=== PATIENT | female | born 1940 | race Caucasian/White ===

== ENCOUNTER 2022-03-10 13:00 | Outpatient (RCR) | payer MEDICARE, SELFPAY ==
--- OUTSIDE RECORDS SUMMARY | 2022-02-10 10:33 | XMS_ITS | Continuity of Care Document ---
:1940 Author Care Team Providers Name Role Phone MD Berta Durham Primary Care Physician JAIRO Rogers Attending Physician Chief Complaint and Reason for Visit Chief Complaint Dyspnea/Respdistress Reason for Visit Diabetes [id number] Allergies, Adverse Reactions, Alerts Allergen Type Severity Reaction Last Verified Status Updated Penicillin Allergy Severe RASH January 17, Yes Active 2020 Sulfa Allergy Mild RASH January 17, Yes Active Antibiotics 2020 Social History Smoking Status Status Start Date End Date Date of Observat ion Ex-smoker (finding) January 17 4:49pm Additional Data Assigned Sex Female Problems Active Problems Medical Problem Onset Date Status Asthma Active Medications Medication Status Dose Units Route Directions Qty Days Start End Ins tructions Date Date Metformin Hcl Active 500 MG PO Three Times A Day Montelukast Active 10 MG PO Bedtime Sodium Prednisone Active 20 MG PO Daily 5 5 January 17, 2021 5:07pm Advance Directives Advance Directive Response Recorded Date/Time Has patient completed a Yes January 17, 2021 4 :49pm Health Care Directive? Insurance Providers Guarantor AnanthLouann Address [address] [place] [id number] Contact Info. Home Phone: Payer Policy Id Coverage Id Subscriber's Subscriber Id Effective E xpiration Name Date Date [facility] [id number] Louann Wadsworth [id number] Medicare Plans Encounters Encounter Location(s) Arrival/Admit Date Discharge/Depart Date Provider(s) Registered [place] February 09, 2022 Idania Rogers [facility] 6:59am A MANAGER COLLECTION Plan of Treatment Future Tests Future scheduled test information is unavailable Pending Tests Pending diagnostic test information is unavailable Future Visits Future appointment information is unavailable Referrals to Other Providers Reason for Referral Start Provider Provider Contact Provider Address Referral Date Information Luna Durham Work Phone: [facility] Berta ODOM [address] [employer] [address] Future Procedures Future procedure information is unavailable Future Medications Future medication information is unavailable Patient Instructions See Additional Instructions Asthma (DC)
[2022-02-24 13:13] VITALS: BP 143/82; RESP 18; TEMP 36.9; O2SAT 95
[2022-02-24] MEDS: OMALIZUMAB 75 MG SUBCUT (13:30)
[2022-02-24] MEDS: OMALIZUMAB 150 MG PT OWN 300 MG SUBCUT (13:30)
--- NOTE | 2022-03-03 19:37 | ONC.NURNOTE ---
Authorization: User: Yuko [email or web address] Date: 12/08/21 09:20 Type: Eligibility Determination Note... Per Arlet in UR. Pt's medicine comes from [facility]; no PA necessary per [facility].
[2022-03-10 12:58] VITALS: BP 172/85; PULSE 69; RESP 16; TEMP 36.9; O2SAT 93
[2022-03-10] MEDS: OMALIZUMAB 150 MG PT OWN 300 MG SUBCUT (13:29)
[2022-03-10] MEDS: OMALIZUMAB 75 MG SUBCUT (13:29)
== END 2022-03-19 23:59 | disposition home or self-care (01) ==
LOC: CCIC 13:00
PROVIDERS: PCP Family Medicine; Visit Provider Clinical Nurse Specialist
DX: J45.909 Unspecified asthma, uncomplicated (principal)
CPT/HCPCS: 96372; 96374

== ENCOUNTER 2022-09-15 13:30 | Outpatient (RCR) | payer MEDICARE, SELFPAY ==
[2022-03-24 12:58] VITALS: BP 161/77; PULSE 72; RESP 16; TEMP 36.6; O2SAT 96
[2022-03-24] MEDS: OMALIZUMAB 150 MG PT OWN 300 MG SUBCUT (13:27)
[2022-03-24] MEDS: OMALIZUMAB 75 MG SUBCUT (13:27)
[2022-04-07 12:55] VITALS: BP 125/83; PULSE 65; RESP 16; TEMP 37; O2SAT 96
[2022-04-07] MEDS: OMALIZUMAB 75 MG SUBCUT (13:30)
[2022-04-07] MEDS: OMALIZUMAB 150 MG PT OWN 300 MG SUBCUT (13:30)
[2022-04-21 13:20] VITALS: BP 151/90; PULSE 79; RESP 16; TEMP 36.9; O2SAT 95
[2022-04-21] MEDS: OMALIZUMAB 150 MG PT OWN 300 MG SUBCUT (13:47)
[2022-04-21] MEDS: OMALIZUMAB 75 MG SUBCUT (13:48)
[2022-05-05 13:45] VITALS: BP 145/85; PULSE 78; RESP 18; TEMP 36.9; O2SAT 98
[2022-05-05] MEDS: OMALIZUMAB 75 MG SUBCUT (14:01)
[2022-05-05] MEDS: OMALIZUMAB 150 MG PT OWN 300 MG SUBCUT (14:01)
--- NOTE | 2022-05-05 15:49 | ONC.NURNOTE ---
Pt here for xanelir. Pt very stressed related to clinic bill she received. Pt has talked to Cris the pt advocate in the recent past regarding same issue. Doula left message for pt advocate to contact pt regarding this issue.
[2022-05-19 13:43] VITALS: BP 143/89; PULSE 73; RESP 16; TEMP 36.2; O2SAT 98
[2022-05-19] MEDS: OMALIZUMAB 75 MG SUBCUT (14:22)
[2022-05-19] MEDS: OMALIZUMAB 150 MG PT OWN 300 MG SUBCUT (14:22)
[2022-06-02 12:46] VITALS: BP 142/88; PULSE 71; RESP 16; TEMP 36.3; O2SAT 100
[2022-06-02] MEDS: OMALIZUMAB 150 MG PT OWN 300 MG SUBCUT (13:15)
[2022-06-02] MEDS: OMALIZUMAB 75 MG SUBCUT (13:15)
--- NOTE | 2022-06-02 14:44 | ONC.NURNOTE ---
Pt tolerated Xolair well. Pt saw Dr. Marsh for annual visit on 05/23; requested visit note and new orders be faxed to us. Pt scheduled for next 2 doses in congruence with expiration date of current orders being 07/01/22.
[2022-06-16 12:57] VITALS: BP 155/90; PULSE 64; RESP 16; TEMP 36.8; O2SAT 99
[2022-06-16] MEDS: OMALIZUMAB 150 MG PT OWN 300 MG SUBCUT (13:21)
[2022-06-16] MEDS: OMALIZUMAB 75 MG SUBCUT (13:22)
[2022-06-30 12:50] VITALS: BP 144/85; PULSE 69; RESP 16; TEMP 36.1; O2SAT 100
[2022-06-30] MEDS: OMALIZUMAB 150 MG PT OWN 300 MG SUBCUT (13:22)
[2022-06-30] MEDS: OMALIZUMAB 75 MG SUBCUT (13:22)
--- NOTE | 2022-07-11 12:49 | ONC.NURNOTE ---
Received call from pharmacy noting the shipment of Xolair has not arrived. Upon investigation, specialty pharmacy needs updated prescription. Faxed updated orders to our pharmacy, who will then fax/coordinate with specialty pharmacy for delivery. Notified pt to call us 07/14 prior to appt to confirm Xolair is available. Pt is agreeable to this plan.
--- NOTE | 2022-07-17 15:36 | ONC.NURNOTE ---
Patient called to see if her Xolair came today. Called pharmacy and they have not received her Xolair. They went and checked the loading dock and it was not there as well. Called patient back to let her know it is not here. She is concerned that there is something wrong with the process as she had a hard time when she first got here. Pearl Technician started to investigate situation. Pharmacy had been faxing the Infusion Therapy request form which is signed by Mala Rogers but we do not have an actual prescription. Called Dr. Marsh's office at [place] to request a prescription and spoke with his nurse, Vinay who stated that Dr. Durham is the doctor who is prescribing this medication as it is against [facility]'s policy for a provider to send a prescription to another facility where they do not have privileges to prescribe. Pearl Technician called Dr. Durham's office and spoke with a nurse, Guevara, who stated that Dr. Durham is not in today but they left an Urgent task in her basket and she will be in tomorrow at 7am. Pearl Technician faxed over Dr. Marsh's most recent visit and lab work and requested that Dr. Durham fax the new prescription to the [facility] so we can then submit this to the specialty pharmacy as soon as we get it (Specialty pharmacy: Phone: , Fax: ). Patient was called and updated on this information and will get her scheduled as soon as we get the medication in. She felt good knowing that there is a solution. Pearl Technician also contacted the patient advocate to keep her informed of the situation.
--- NOTE | 2022-07-18 15:56 | ONC.NURNOTE ---
e prescription sent to [facility] which is the [facility] pharmacy for dispensing Xolair 375 mg SQ q 2 weeks 28 day supply 150 mg X 2 disp #4 75mg X 1 disp #2 signed by Mala Rogers APRN
--- NOTE | 2022-07-19 11:12 | ONC.NURNOTE ---
[facility] has contacted [facility] for Xolair 150mg and 75mg received they will be sending a 2 month supply #8 150 mg #4 75 mg
[2022-08-02 13:46] VITALS: BP 158/90; PULSE 68; RESP 16; TEMP 36.6; O2SAT 97
[2022-08-02] MEDS: OMALIZUMAB 75 MG SUBCUT (14:14)
[2022-08-02] MEDS: OMALIZUMAB 150 MG PT OWN 300 MG SUBCUT (14:16)
[2022-08-16 13:45] VITALS: BP 160/77; PULSE 80; RESP 16; TEMP 36.9; O2SAT 96
[2022-08-16] MEDS: OMALIZUMAB 75 MG SUBCUT (13:49)
[2022-08-16] MEDS: OMALIZUMAB 150 MG PT OWN 300 MG SUBCUT (13:49)
[2022-09-01 13:30] VITALS: BP 158/90; PULSE 76; RESP 16; TEMP 36.8; O2SAT 97
[2022-09-01] MEDS: OMALIZUMAB 150 MG PT OWN 300 MG SUBCUT (14:10)
[2022-09-01] MEDS: OMALIZUMAB 75 MG SUBCUT (14:11)
[2022-09-15 13:25] VITALS: BP 147/86; PULSE 71; RESP 16; TEMP 36.3; O2SAT 96
[2022-09-15] MEDS: OMALIZUMAB 75 MG SUBCUT (13:40)
[2022-09-15] MEDS: OMALIZUMAB 150 MG PT OWN 300 MG SUBCUT (13:40)
== END 2022-09-20 23:59 | disposition home or self-care (01) ==
LOC: CCIC 13:30
PROVIDERS: PCP Family Medicine; Referring Provider Family Medicine; Visit Provider Clinical Nurse Specialist
DX: J45.909 Unspecified asthma, uncomplicated (principal)
CPT/HCPCS: 96372; 96401

== ENCOUNTER 2023-03-02 14:36 | Emergency (ER) | payer MEDICARE, SELFPAY ==
[2023-03-02 14:40] VITALS: BP 164/84; PULSE 74; RESP 18; TEMP 37.1; O2SAT 95; BMI 32.1
--- NOTE | 2023-03-02 15:09 | ED_ITS ---
HPI - SOB/Dyspnea General Chief Complaint: Shortness of Breath/Dyspnea Stated Complaint: Asthma exacerbated shortness of breath Time Seen by Provider: 03/02/23 14:37 Source: patient Mode of arrival: ambulatory History of Present Illness HPI Narrative: 82-year-old female with a notable history of asthma that presents to emergency department for worsening shortness of breath over the past couple of days. She has a known history of eosinophilic asthma. Has never responded well to montelukast or inhaled steroids. She is on Xolair injections. She sees an asthma specialist at [place]. She reports that she has had 4 or 5 prednisone burst s within the last 6 months. She completed her last per 17 days ago. She no longer has standing prednisone orders she found out and requests a refill of her prednisone today in the ED. She has inhaled albuterol at home. She does respond to this but only temporarily. Is using every 3-4 hours for the past 24 hours. She states that she has never had any intubated for her asthma. She is not noticing any fevers or productive cough. She has not contacted her asthma specialist recently. She no longer has access to nebulized albuterol since her insurance no longer covers this, except for COPD patients. She reports that she does typically improve on the nebulized medications as well. No injury or trauma, no chest pain. No swelling her legs or cardiac symptoms. No other concerns today. Requests a prednisone refill. Symptoms were gradual onset. Past medical history is notable for type 2 diabetes, reports that this is well controlled. Multiple drug allergies reviewed. Medications reviewed, reported as accurate per patient. ROS is notable for the respiratory symptoms as above only, otherwise denies times 12 systems. Related Data Home Medications Medication Instructions Recorded Confirmed metformin 500 mg tablet 500 mg PO TID 02/23/22 03/02/23 albuterol sulfate 90 mcg/actuation 2 puff inhalation Q4H PRN 02/24/22 03/02/23 aerosol inhaler magnesium oxide 400 mg PO DAILY 01/05/23 03/02/23 prednisone 20 mg tablet 40 mg PO DAILY PRN ASTHMA FLARE 02/08/23 03/02/23 Previous Rx's Medication Instructions Recorded omalizumab 150 mg/mL subcutaneous 300 mg (2 mL) subcut Q2W asthma #8 07/18/22 syringe (Xolair) mL omalizumab 75 mg/0.5 mL 75 mg (0.5 mL) subcut Q2W asthma 07/18/22 subcutaneous syringe (Xolair) #2 syringes albuterol sulfate 90 mcg/actuation 2 puff inhalation Q4-6H PRN 03/02/23 aerosol inhaler (Ventolin HFA) shortness of breath or wheezing #8.5 grams inhalat.spacing dev,large mask #1 ea 03/02/23 (BreatheRite Spacer and Mask, Adult) prednisone 20 mg tablet 20 - 40 mg (1 - 2 x 20 mg) PO 03/02/23 DAILY #15 tabs Allergies Allergy/AdvReac Type Severity Reaction Status Date / Time Penicillins Allergy Severe Verified 03/02/23 14:50 Sulfa (Sulfonamide Allergy Mild Verified 03/02/23 14:50 Antibiotics) terbinafine Allergy Mild Depression Verified 03/02/23 14:50 fluticasone [From Flonase] AdvReac Mild Nose Bleed Verified 03/02/23 14:50 PFSH PFSH Surgical History History of hysterectomy with unilateral oophorectomy ?Z90.710 - Acquired absence of both cervix and uterus (ICD-10) ?Z90.721 - Acquired absence of ovaries, unilateral (ICD-10) History of nephrolithiasis ?Z87.442 - Personal history of urinary calculi (ICD-10) History of cholecystectomy ?Z90.49 - Acquired absence of other specified parts of digestive tract (ICD- 10) History of cataract surgery ?Z98.49 - Cataract extraction status, unspecified eye (ICD-10) Exam Const: Vital Signs, click to edit/add: Vital Signs - 24 hr 03/02/23 14:40 Temperature 98.8 F Pulse Rate [Right Pulse Oximeter] 74 Respiratory Rate 18 Blood Pressure [Ri ght Upper Arm] 164/84 H Pulse Oximetry 95 Oxygen Delivery Me thod Room Air Documenting provider has reviewed patient's vital signs: yes Common normals: no apparent distress General appearance: cooperative, comfortable and well kempt HENMT: Common normals: normocephalic Head and scalp: normocephalic Face and sinus: normal facial exam Mouth: oral and palatal mucosa normal Throat: posterior oropharynx normal Eye: Common normals: conjunctivae normal General eye: normal appearance of both eyes Conjunctiva: conjunctiva(e) normal Neck & C-Spine: Common normals: no lymphadenopathy Resp: Common normals: normal respiratory effort and no use of accessory muscles Other: Moderate expiratory wheezing only. Mild prolongation of expiration compared to inspiration. No crackles. Normal respiratory effort. Cardio: Common normals: regular rate, regular rhythm, S1 normal heart sound, S2 normal heart sound and no murmurs Rate: regular rate Rhythm: regular rhythm Heart sounds: S1 normal and S2 normal Extremity: Common normals: normal capillary refill and no pedal edema Psych: Appearance: well kempt Attitude: engaged Insight: insight good Judgement: judgment good Skin: Common normals: no rashes or lesions noted General skin exam: no rashes or lesions noted Course Course Hospital Course: Differential diagnosis including asthma, COPD, pneumonia, viral illness, pulmonary embolism, heart failure, bronchitis, among others. No signs of any structural cardiac disease, vital signs are reassuring. No hypoxia. Exam is consistent with wheezing in the setting of known asthmatic. Recommended a DuoNeb and starting prednisone. Do not see any indications for chest x-ray or additional blood work with her well documented history. Discussed home management with a prednisone burst. She lets me know that she may not have adequate inhaled albuterol, I will send prescriptions for this as well. She will follow-up with her asthma specialist if she is not noting marked improvement within 48 hours. Alarm symptoms reviewed that would warrant ED presentation. Verbalizes understanding and agreement Vital Signs Vital signs: Initial Vital Signs Temperature 98.8 F 03/02/23 14:40 Temperature Source Temporal Artery Scan 03/02/23 14:40 Pulse Rate 74 03/02/23 14:40 Respiratory Rate 18 03/02/23 14:40 Blood Pressure 164/84 H 03/02/23 14:40 Blood Pressure Mean 110 H 03/02/23 14:40 Blood Pressure Position Sitting 03/02/23 14:40 Pulse Oximetry 95 03/02/23 14:40 Oxygen Delivery Method Room Air 03/02/23 14:40 Vital Signs Temperature 98.8 F 03/02/23 14:40 Pulse Rate 74 03/02/23 14:40 Respiratory Rate 18 03/02/23 14:40 Blood Pressure 164/84 H 03/02/23 14:40 Pulse Oximetry 95 03/02/23 14:40 Oxygen Delivery Method Room Air 03/02/23 14:40 Temperature 98.8 F 03/02/23 14:40 Pulse Rate 74 03/02/23 14:40 Respiratory Rate 18 03/02/23 14:40 Blood Pressure 164/84 H 03/02/23 14:40 Pulse Oximetry 95 03/02/23 14:40 Oxygen Delivery Method Room Air 03/02/23 14:40 Discharge Plan Discharge Clinical Impression: Asthma with acute exacerbation Patient Disposition: Home, Self-Care Condition: Improved Instructions: Asthma (DC) Additional Instructions: I agree with your assessment that you need another round of prednisone. I have sent a prescription [facility] to [facility]. You have already had today's dose, but take your next dose tomorrow morning. I have sent additional refills of your albuterol and a spacer which I recommend you use with your inhaler. You should notice marked improvement within 48 hours. If your breathing become severely labored, you start running high fevers or there is severe weakness or other worrisome findings, please come back to the emergency department. If her symptoms are stable but failing to improve within 48 hours, please contact your asthma specialist. Activity Level: Activity as Tolerated Prescriptions: New prednisone 20 mg tablet 20 - 40 mg PO DAILY Qty: 15 0RF Rx Instructions: 2 tablets by mouth daily for 5 days, then reduce to 1 tablet by mouth daily for the remaining 5 days albuterol sulfate [Ventolin HFA] 90 mcg/actuation HFA aerosol inhaler 2 puff inhalation Q4-6H PRN (Reason: shortness of breath or wheezing) Qty: 8.5 1RF (DME) BreatheRite Spacer-Mask,Adult Spacer See Rx Instructions .Route Qty: 1 1RF Rx Instructions: As directed No Action metformin 500 mg tablet 500 mg PO TID Patient Comments: TAKE ONE TABLET BY MOUTH TWICE A DAY WITH MEALS albuterol sulfate 90 mcg/actuation HFA aerosol inhaler 2 puff INHALATION Q4H PRN Patient Comments: Inhale 1-2 Puffs by mouth every 4 hours if needed for Shortness of Breath 1st choice. prednisone 20 mg tablet 40 mg PO DAILY PRN (Reason: ASTHMA FLARE) Patient Comments: TAKE 2 TABLETS DAILY FOR 5 DAYS , THEN 1 TABLETS DAILY FOR 5 DAYS - FOR TREATMENT OF EOSINOPHILIC ASTHMA EXACE magnesium oxide 400 mg magnesium capsule 400 mg PO DAILY Xolair 150 mg/mL syringe 300 mg subcut Q2W Qty: 8 11RF Rx Instructions: Administer 2 - 150mg syringes and 1 - 75 mg syringe. Total dose of 375mg q 14 days. Xolair 75 mg/0.5 mL syringe 75 mg subcut Q2W Qty: 2 11RF Rx Instructions: 1 - 75mg syringe q 2 weeks subQ. Given with 2 - 150mg syringes for total dose of 375mg of omalizumab q 2 weeks (14 days) Follow Up/Referrals: Adrianna Fermin MD [Primary Care Provider] - Stand Alone [facility]
[2023-03-02] MEDS: predniSONE 10 MG TABLET 50 MG PO (15:23)
[2023-03-02] MEDS: IPRAT-ALBUT 0.5-2.5 MG/3 ML NEB 1 NEB IH (15:23)
== END 2023-03-02 15:39 | disposition home or self-care (01) ==
PROVIDERS: Emergency Provider Family Medicine; PCP Internal Medicine
DX: J45.901 Unspecified asthma with (acute) exacerbation (principal)
CPT/HCPCS: 94640; 99283; 99284; J7512

== ENCOUNTER 2023-03-16 13:30 | Outpatient (RCR) | payer MEDICARE, SELFPAY ==
[2022-09-29 13:45] VITALS: BP 171/91; PULSE 76; RESP 16; TEMP 36.5; O2SAT 94
[2022-09-29] MEDS: OMALIZUMAB 75 MG SUBCUT (14:14)
[2022-09-29] MEDS: OMALIZUMAB 150 MG PT OWN 300 MG SUBCUT (14:14)
[2022-10-13 13:33] VITALS: BP 127/80; PULSE 79; RESP 18; TEMP 36.4; O2SAT 96
[2022-10-13] MEDS: OMALIZUMAB 150 MG PT OWN 300 MG SUBCUT (13:45)
[2022-10-13] MEDS: OMALIZUMAB 75 MG SUBCUT (13:45)
--- NOTE | 2022-10-13 15:49 | ONC.NURNOTE ---
Pt here for Xolair injections; she is still on oral Dex for a recent asthma flare and c/o symptoms of thrush in her mouth. She reports feeling like her tongue is coated and her teeth feel coated every few hours; she is drinking additional water to manage. She has had thrush previously when on steroid tapers and has a message out to her PCP for nystatin [id number], which has been effective in the past. Script Reader examined tongue; yellow, patchy/coated. She describes similar symptoms in her throat as well. Gave pt handout for mucositis, highlighting especially salt water rinses at least QID. Also gave pt contact info for [facility] and [facility] hours as it is Sunday; pt to see a provider this weekend.
[2022-10-27 13:27] VITALS: BP 155/83; PULSE 76; RESP 16; TEMP 36.9; O2SAT 93
[2022-10-27] MEDS: OMALIZUMAB 75 MG SUBCUT (13:44)
[2022-10-27] MEDS: OMALIZUMAB 150 MG PT OWN 300 MG SUBCUT (13:45)
[2022-11-10 13:36] VITALS: BP 142/69; PULSE 76; RESP 16; TEMP 36.2; O2SAT 96
[2022-11-10] MEDS: OMALIZUMAB 150 MG PT OWN 300 MG SUBCUT (13:55)
[2022-11-10] MEDS: OMALIZUMAB 75 MG SUBCUT (13:56)
--- NOTE | 2022-11-10 15:34 | ONC.NURNOTE ---
Pt here for Xolair today; is 1 week post end of steroid taper. She reports she recently had a Zpack and Nystatin for Thrush and is out of both. Z-pack was prescribed with a refill and pt feels the 5 ml is inadequate amount to reach her entire mouth and throat. Reviewed that sometimes 10 ml at a time is prescribed and encouraged pt to reach out to pharmacy/PCP for refill. Encouraged salt water rinses QID. Pt reports she is consider taking MG OTC for occasional calf and thigh cramps that have recently increased. Recommended pt ask PCP about appropriate dose range. Pt agreeable to this plan; appts made for next injections.
[2022-11-24 13:31] VITALS: BP 154/89; PULSE 80; RESP 16; TEMP 36.3; O2SAT 98
[2022-11-24] MEDS: OMALIZUMAB 75 MG SUBCUT (13:55)
[2022-11-24] MEDS: OMALIZUMAB 150 MG PT OWN 300 MG SUBCUT (13:56)
--- NOTE | 2022-12-05 13:07 | URNOTE ---
Request received for authorization for Xolair ([id number]). Prior authorization is not required as medication is sent by [facility] through [facility] until 04/2024.
[2022-12-08 13:30] VITALS: BP 160/81; PULSE 84; RESP 18; TEMP 36.3; O2SAT 97
[2022-12-08] MEDS: OMALIZUMAB 150 MG PT OWN 300 MG SUBCUT (14:28)
[2022-12-08] MEDS: OMALIZUMAB 75 MG SUBCUT (14:28)
[2022-12-22 13:24] VITALS: BP 167/76; PULSE 78; RESP 16; TEMP 37; O2SAT 94
[2022-12-22] MEDS: OMALIZUMAB 150 MG PT OWN 300 MG SUBCUT (13:57)
[2022-12-22] MEDS: OMALIZUMAB 75 MG SUBCUT (13:57)
[2023-01-05 13:32] VITALS: BP 163/84; PULSE 72; RESP 16; TEMP 36.2; O2SAT 99
[2023-01-05] MEDS: OMALIZUMAB 75 MG SUBCUT (13:57)
[2023-01-05] MEDS: OMALIZUMAB 150 MG PT OWN 300 MG SUBCUT (13:57)
[2023-01-19 13:26] VITALS: BP 158/74; PULSE 81; RESP 16; TEMP 36.3; O2SAT 95
[2023-01-19] MEDS: OMALIZUMAB 75 MG SUBCUT (13:56)
[2023-01-19] MEDS: OMALIZUMAB 150 MG PT OWN 300 MG SUBCUT (13:57)
[2023-02-02 13:15] VITALS: BP 129/73; PULSE 75; RESP 16; TEMP 36.1; O2SAT 95
[2023-02-02] MEDS: OMALIZUMAB 150 MG PT OWN 300 MG SUBCUT (13:45)
[2023-02-02] MEDS: OMALIZUMAB 75 MG SUBCUT (13:45)
[2023-02-16 13:25] VITALS: BP 153/83; PULSE 77; RESP 16; TEMP 36.1; O2SAT 94
[2023-02-16] MEDS: OMALIZUMAB 75 MG SUBCUT (13:43)
[2023-02-16] MEDS: OMALIZUMAB 150 MG PT OWN 300 MG SUBCUT (13:43)
[2023-03-02 13:15] VITALS: BP 145/72; PULSE 71; RESP 18; TEMP 36.3; O2SAT 94
[2023-03-02] MEDS: OMALIZUMAB 150 MG PT OWN 300 MG SUBCUT (13:29)
[2023-03-02] MEDS: OMALIZUMAB 75 MG SUBCUT (13:29)
[2023-03-16 13:10] VITALS: BP 148/78; PULSE 68; RESP 16; TEMP 36.6; O2SAT 96
[2023-03-16] MEDS: OMALIZUMAB 150 MG PT OWN 300 MG SUBCUT (13:33)
[2023-03-16] MEDS: OMALIZUMAB 75 MG SUBCUT (13:33)
== END 2023-03-29 14:04 | disposition home or self-care (01) ==
LOC: CCIC 13:30
PROVIDERS: PCP Family Medicine; Referring Provider Family Medicine; Visit Provider Clinical Nurse Specialist
DX: J45.909 Unspecified asthma, uncomplicated (principal)
CPT/HCPCS: 94640; 96372; 96401; 99283; 99284; J7512

== ENCOUNTER 2023-05-04 09:47 | Outpatient (CLI) | payer MEDICARE, SELFPAY | END 2023-05-04 09:48 | disposition home or self-care (01) | LOC: NFLDREF 05-08 12:33 | PROVIDERS: PCP Internal Medicine; Referring Provider Family Medicine; Visit Provider Internal Medicine | DX: I10 Essential (primary) hypertension (principal); E11.9 Type 2 diabetes mellitus without complications; E66.9 Obesity, unspecified | CPT/HCPCS: 80053; 82043; 82570 ==

== ENCOUNTER 2023-09-21 13:30 | Outpatient (RCR) | payer MEDICARE, SELFPAY ==
[2023-03-30 13:40] VITALS: BP 154/89; PULSE 66; RESP 18; TEMP 36.8; O2SAT 95
[2023-03-30] MEDS: OMALIZUMAB 75 MG SUBCUT (14:22)
[2023-03-30] MEDS: OMALIZUMAB 150 MG PT OWN 300 MG SUBCUT (14:22)
[2023-04-13 13:23] VITALS: BP 165/90; PULSE 75; RESP 16; TEMP 36.6; O2SAT 98
[2023-04-13] MEDS: OMALIZUMAB 75 MG SUBCUT (13:46)
[2023-04-13] MEDS: OMALIZUMAB 150 MG PT OWN 300 MG SUBCUT (13:46)
[2023-04-27 13:18] VITALS: BP 150/73; PULSE 81; RESP 16; TEMP 36.6; O2SAT 93
[2023-04-27] MEDS: OMALIZUMAB 150 MG PT OWN 300 MG SUBCUT (14:00)
[2023-04-27] MEDS: OMALIZUMAB 75 MG SUBCUT (14:01)
--- NOTE | 2023-04-27 16:25 | ONC.NURNOTE ---
states had a tooth extracted 3 days ago. denies abscess or infection. denies pain. did take tylenol day of. now on preventative clindamycin. Also on po prednisone [id number] and 20x2 days for asthma exh. states sats 89 at home a few days ago.
[2023-05-11 13:30] VITALS: BP 146/75; PULSE 71; RESP 16; TEMP 36.1; O2SAT 95
[2023-05-11] MEDS: OMALIZUMAB 75 MG SUBCUT (13:41)
[2023-05-11] MEDS: OMALIZUMAB 150 MG PT OWN 300 MG SUBCUT (13:41)
[2023-05-25 13:27] VITALS: BP 132/77; PULSE 66; RESP 16; TEMP 36.2; O2SAT 97
[2023-05-25] MEDS: OMALIZUMAB 75 MG SUBCUT (13:57)
[2023-05-25] MEDS: OMALIZUMAB 150 MG PT OWN 300 MG SUBCUT (13:57)
[2023-06-08 13:56] VITALS: BP 142/72; PULSE 74; RESP 16; TEMP 36.5; O2SAT 95
[2023-06-08] MEDS: OMALIZUMAB 150 MG PT OWN 300 MG SUBCUT (14:15)
[2023-06-08] MEDS: OMALIZUMAB 75 MG SUBCUT (14:15)
[2023-06-22 13:15] VITALS: BP 122/76; PULSE 62; RESP 16; TEMP 36.6; O2SAT 97
[2023-06-22] MEDS: OMALIZUMAB 75 MG SUBCUT (14:08)
[2023-06-22] MEDS: OMALIZUMAB 150 MG PT OWN 300 MG SUBCUT (14:08)
[2023-07-06 13:32] VITALS: BP 144/75; PULSE 85; RESP 16; TEMP 36.6; O2SAT 96
[2023-07-06] MEDS: OMALIZUMAB 150 MG PT OWN 300 MG SUBCUT (13:58)
[2023-07-06] MEDS: OMALIZUMAB 75 MG SUBCUT (13:58)
[2023-07-20 13:22] VITALS: BP 145/84; PULSE 72; RESP 16; TEMP 35.9; O2SAT 93
[2023-07-20] MEDS: OMALIZUMAB 150 MG PT OWN 300 MG SUBCUT (14:29)
[2023-07-20] MEDS: OMALIZUMAB 75 MG SUBCUT (14:29)
[2023-08-03 13:30] VITALS: BP 156/83; PULSE 68; RESP 16; TEMP 36.8; O2SAT 97
[2023-08-03] MEDS: OMALIZUMAB 150 MG PT OWN 300 MG SUBCUT (13:45)
[2023-08-03] MEDS: OMALIZUMAB 75 MG SUBCUT (13:45)
[2023-08-17 13:30] VITALS: BP 136/77; PULSE 69; RESP 16; TEMP 35.7; O2SAT 96
[2023-08-17] MEDS: OMALIZUMAB 75 MG SUBCUT (13:42)
[2023-08-17] MEDS: OMALIZUMAB 150 MG PT OWN 300 MG SUBCUT (13:42)
[2023-08-30 14:15] VITALS: BP 130/78; PULSE 77; RESP 15; TEMP 36.6; O2SAT 95
[2023-08-30] MEDS: OMALIZUMAB 150 MG PT OWN 300 MG SUBCUT (14:35)
[2023-08-30] MEDS: OMALIZUMAB 75 MG SUBCUT (14:35)
--- NOTE | 2023-09-14 16:01 | ONC.NURNOTE ---
Pt did not show up for appt today, left message for pt to call back and reschedule.
[2023-09-21 13:18] VITALS: BP 154/76; PULSE 69; RESP 16; TEMP 36.3; O2SAT 93
[2023-09-21] MEDS: OMALIZUMAB 75 MG SUBCUT (14:11)
[2023-09-21] MEDS: OMALIZUMAB 150 MG PT OWN 300 MG SUBCUT (14:12)
== END 2023-09-26 23:59 | disposition home or self-care (01) ==
LOC: CCIC 13:30
PROVIDERS: PCP Internal Medicine; Referring Provider Family Medicine; Visit Provider Clinical Nurse Specialist
DX: J82.83 Eosinophilic asthma (principal)
CPT/HCPCS: 96372

== ENCOUNTER 2024-01-31 07:51 | Outpatient (CLI) | payer MEDICARE, SELFPAY ==
--- OUTSIDE RECORDS SUMMARY | 2024-02-03 20:21 | XMS_ITS | Clinical Summary ---
Author Organization [facility] Address [place], [place] [address] Care Team Providers Care Bpm Solution Architect Name Role Phone Luna Durham MD Primary Care Provide r Allergies Active Allergy Reactions Criticality Noted Date Comments Horse Dander Other - Describe In Comment Field 05/18/2022 Positive allergy test House Dust Mite Other - Describe In Comment Field 05/18/2022 Positive allergy test Mold Other - Describe In Comment Field 05/18/2022 Positive allergy test Penicillins Anaphylaxis High 07/01/2020 Sulfa (Sulfonamide Antibiotics) Hives,Rash Medium 07/01/2020 Medications Medication Sig Dispensed Refills Start Date End Date Status blood-glucose meterIndications:Ty pe 2 diabetes mellitus without complication, without long-term current use of insulin (HC) Inject subcutaneous. Dispense meter, test strips, lancets covered by pt ins. E11.65 NIDDM type II, uncontrolled - Test 2 time/day 1 Device 07/22/2020 Active EPINEPHrine (EPIPEN) 0.3 mg/0.3 mL injection PLEASE SEE ATTACHED FOR DETAILED DIRECTIONS 12/31/2020 Active blood sugar diagnostic (True Metrix Glucose Test Strip) stripIndications:Ty pe 2 diabetes mellitus without complication, without long-term current use of insulin (HC) As directed 2 times daily. Dispense item covered by pt ins. E11.9 NIDDM type II - Test 1 time/day 200 Each 3 12/30/2021 Active azithromycin (Zithromax Z-[place]) 250 mg tabletIndications:A cute frontal sinusitis, recurrence not specified Take 500 mg today and then 250 mg days 2-5 6 Tablet 1 10/19/2022 Active albuterol HFA (PRO-AIR; VENTOLIN; PROVENTIL) 90 mcg/actuation inhalerIndications: Moderate persistent asthma with exacerbation Inhale 1-2 Puffs by mouth every 4 hours if needed for Shortness of Breath 1st choice. 18 g 11 11/28/2022 Active metFORMIN (GLUCOPHAGE) 500 mg tabletIndications:T ype 2 diabetes mellitus without complication, without long-term current use of insulin (HC) Take 1 Tablet (500 mg) by mouth three times daily with meals. 270 Tablet 3 11/28/2022 Active nystatin (MYCOSTATIN) 100,000 unit/mL suspensionIndicatio ns:Oral thrush Swish and swallow 5 mL (500,000 units) by mouth four times daily. 400 mL 45 12/25/2022 Active amLODIPine (NORVASC) 5 mg tabletIndications:H TN (hypertension) Take 1 Tablet (5 mg) by mouth once daily. 90 Tablet 3 12/25/2022 Active predniSONE (DELTASONE) 10 mg tabletIndications:M oderate persistent asthma with exacerbation TAKE 4 TABLETS DAILY WITH FOOD FOR 5 DAYS, THEN 2 TABLETS DAILY FOR 5 DAYS, THEN 1 TABLET DAILY FOR 5 DAYS AND THEN STOP 35 Tablet 03/11/2023 Active omalizumab (XOLAIR) 75 mg/0.5 mL subcutaneous syringeIndications: Pulmonary eosinophilia (HC) Inject 375 mg subcutaneous every 2 weeks 28 day supply as 2 at 150 mgs along with 75 mgs to equal 375mgs 0.5 mL 11 06/21/2023 Active omalizumab (XOLAIR) 150 mg/mL subcutaneous syringeIndications: Pulmonary eosinophilia (HC) Inject 375 mg subcutaneous every 2 weeks 28 day supply 2 at 150 mgs along with 75 mgs to equal 375mgs 2 mL 06/21/2023 Active Hospital, Clinic, or Other Facility Administered Medication Ordered Dose Route Frequency Start Date End Date Status omalizumab 150 mg injection (XOLAIR)Indications:Moderat e persistent asthma with (acute) exacerbation,Eosinophilic asthma 150 mg SubQ Q 2 WEEKS 07/02/2020 Active omalizumab 225 mg injection (XOLAIR)Indications:Moderat e persistent asthma with (acute) exacerbation,Eosinophilic asthma 225 mg SubQ Q 2 WEEKS 07/19/2022 07/15/2036 Active Active Problems Problem Noted Date Diagnosed Date Pulmonary eosinophilia 11/03/2021 Eosinophilic asthma 07/01/2020 Moderate persistent asthma with (acute) exacerba tion 07/01/2020 Type 2 diabetes mellitus wit hout complication, without long-term current use of insulin 07/01/2020 Thyroid nodule 07/01/2020 Immunizations Name Administration Dates Next Due COVID-19 vaccine (Moderna 10 0mcg/0.5mL) PF, MDV 10/13/2020,09/15/2020 Influenza Virus, Unspecified 06/08/2015,06/10/20 14,05/14/2013 Influenza, High-dose Inactivated 05/20/2019 Influenza, High-dose Quadriv alent Inactivated 05/25/2022,05/31/2021,05/10/2020 Influenza, IIV3 (Age 6-35 mos) 05/10/2011 Influenza, IIV3 (Age >=3 years) 05/14/2012 Influenza, IIV4 06/11/2018,06/07/2017,05/12/2016 Influenza, Inactivated IIV3 (Age 65+ Years) Preserv Free 05/14/2012 Pneumococcal Conj 20-valent (Prevnar 20) 023 Pneumococcal Poly,23-Valent (Pneumovax) 07/18/20 12,07/23/2006 Td (Age >=7 Years) 07/18/2012,02/17/2005 Social History Tobacco Use Types Packs/Day Years Used Date Smoking Tobacco: Never Smokeless Tobacco: Never Tobacco Cessation:Counseling Given: Yes Alcohol Use Standard Drinks/Week Comments Not Currently 0 (1 standard drink = 0.6 oz pur e alcohol) PHQ-2 Answer Date Recorded PHQ-2 TOTAL SCORE 0 12/25/2022 Social Connections Answer Date Recorded Frequency of Communication with Friends and Fami ly Not on file 12/31/2023 Financial Resource Strain Answer Date R ecorded Difficulty of Paying Living Expenses Not on file 12/25/2022 Difficulty of Paying Living Expenses 3 12/25/2022 Food Insecurity Answer Date Recorded Worried About Running Out of Food in the Last Ye ar 1 12/30/2021 Transportation Needs Answer Date Record ed Lack of Transportation (Medical) 1 12/30/2021 Housing Stability Answer Date Recorded Unable to Pay for Housing in the Last Year 2 12/25/2022 Sex and Gender Information Value Date Recorded Sex Assigned at Not on file Gender Identity Not on file Sexual Orientation Not on file Obstetrics History Last Filed Vital Signs Vital Sign Reading Time Taken Comments Blood Pressure 174/110 12/25/2022 11:08 AM CDT Patient is not taking amlodipine as Rx. Pulse 77 12/25/2022 11:08 AM CDT Temperature 36.6 ??C (97.8 ??F) 12/25/2022 1 1:08 AM CDT Respiratory Rate 18 12/25/2022 11:0 8 AM CDT Oxygen Saturation 97% 12/25/2022 11: 08 AM CDT Inhaled Oxygen Concentration - - Weight 85.3 kg (188 lb) 11/28/2022 11:1 8 AM CDT Height 162.6 cm (5' 4) 12/30/2021 11:1 1 AM CDT Body Mass Index 32.27 12/30/2021 11:11 AM CDT Plan of Treatment Health Maintenance Due Date Last Done Comments Tdap 1951 Zoster (shingles) series for age 50+ (1 of 2) 1992 DEXA/DXA scan for age 65+ 12/22/2007 Tetanus booster 07/18/2022 07/18/2012, 02/17/2005 BMI (ht and wt on same day) for age 18+ 12/30/2022 12/30/2021, 05/10/2021, 03/11/2021, Additional history exists Medicare Wellness for age 65+ 12/31/2022 12/30/2021, 07/22/2020 COVID-19 vaccine series ( season) 2023 05/12/2022, 10/13/2020, 09/15/2020 Depression screening for age 12+ 12/27/2023 12/26/2022, 12/25/2022, 12/25/2022, Additional history exists Influenza for age 65+ 04/20/2024 05/25/2022 , 05/31/2021, 05/10/2020, Additional history exists Pneumococcal series for age 65+ Completed 11/28/2022, 07/18/2012, 07/23/2006 Care Teams Bpm Solution Architect Relationship Specialty Start Date End Date Luna Durham MD [address] [place] [address] PCP - General Family Practice 07/19/20
--- OUTSIDE RECORDS SUMMARY | 2024-02-03 20:21 | XMS_ITS | Referral Summary ---
Author Organization [facility] Address [address] [place] [address] Care Team Providers Care Margarine Maker Name Role Phone Trenton Saavedra P.A.-C., P.A. Primary Care Pr ovider Source Comments Patient records contain information from all sites at [facility]. For routine questions regarding patient records, call [phone] during business hours, M-F 8:00 AM - 5:00 PM Central Time. Record requests for emergency care only can be directed to [phone] at any time.[facility] Allergies Active Allergy Reactions Criticality Noted Date Comments Fluticasone Other (see comments) Low 03/02/2023 Horse Dander Other (see comments) 05/18/2022 Positive allergy test House Dust Mite Other (see comments) 05/18/2022 Positive allergy test Mold Other (see comments) 05/18/2022 Positive allergy test Penicillins Anaphylaxis High 07/01/2020 Sulfa (Sulfonamide Antibiotics) Hives (Reselect Reaction),Rash Medium 07/01/2020 Terbinafine Other (see comments) Low 03/02/2023 Medications Medication Sig Dispensed Refills Start Date End Date Status albuterol 90 mcg/actuation inhaler Inhale 1-2 puffs. 03/10/2021 Active blood sugar diagnostic (True Metrix Glucose Test Strip) strips 2 (two) times a day. 09/09/2020 Active blood-glucose meter kit Inject under the skin. 07/22/2020 Active EPINEPHrine 0.3 mg/0.3 mL injection syringe See Admin Instructions. 12/31/2020 Active omalizumab (XOLAIR) 125 mg/mL injection Inject 375 mg under the skin every 14 (fourteen) days. 07/02/2020 Active metFORMIN XR (GLUCOPHAGE-XR) 500 mg 24 hr tablet Take 4 tablets (2,000 mg total) by mouth daily with breakfast. 360 tablet 3 04/20/2021 Active predniSONE (DELTASONE) 10 mg tabletIndications: Eosinophilic Asthma (HCC) 4T/AM x 7d; then taper off by 1/2T/d 42 tablet 1 08/03/2021 Active Additional Information Patient taking differently: 10 mg, 4T/AM x 7d; then taper off by 1/2T/d, Reported on 05/31/2023 fluticasone-umecli dinium-vilanterol (Trelegy Ellipta) 100-62.5-25 mcg/actuation inhaler Inhale 1 puff once daily. 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 Diabetes Mellitus Type 2 Without Complication Resolved Problems Problem Noted Date Diagnosed Date Resolved Date Asthma Moderate Persistent W ith Acute Exacerbation 07/01/2020 04/20/2021 Immunizations Name Administration Dates Next Due Influenza (IM) Preservative Free 05/10/2011 Influenza TIV (IM) 05/14/2012 Influenza high dose QV(65 ye ars or older) (PF) 05/10/2020 Influenza, Seasonal, Injectable 05/14/2012 Influenza, Unspecified 06/08/2015,06/10/2014, PPSV23 07/18/2012,07/23/2006 Td (Adult), adsorbed 07/18/2012,02/17/2005 influenza high dose (65 year s or older) (PF) 05/20/2019 influenza vaccine quad (FLUZ ONE/FLUARIX) (6 months and older)(PF) 06/11/2018,06/07/2017,05/12/2016 Social History Tobacco Use Types Packs/Day Years Used Date Smoking Tobacco: Former Cigarettes Smokeless Tobacco: Never Tobacco Cessation:Counseling Given: Not Answered Alcohol Use Standard Drinks/Week Comments Never 0 (1 standard drink = 0.6 oz pur e alcohol) Humiliation, Afraid, Rape, and Kick questionnair e Answer Date Recorded Within the last year, have y ou been afraid of your partner or ex-partner? No 05/18/2022 Within the last year, have y ou been humiliated or emotionally abused in other ways by your partner or ex-partner? No Within the last year, have y ou been kicked, hit, slapped, or otherwise physically hurt by your partner or ex-partner? No 05/18/2022 Within the last year, have y ou been raped or forced to have any kind of sexual activity by your partner or ex-partner? No 05/18/2022 Social Connection and Isolat ion Panel [NHANES] Answer Date Recorded In a typical week, how many times do you talk on the phone with family, friends, or neighbors? More than three times a week 05/18/2022 How often do you get togethe r with friends or relatives? Three times a week 05/18/2022 How often do you attend chur or zoroastrian services? More than 4 times per year 05/18/2022 Do you belong to any clubs o r organizations such as shinto groups, unions, fraternal or athletic groups, or school groups? Yes 05/18/2022 How often do you attend meet ings of the clubs or organizations you belong to? More than 4 times per year 05/18/2022 Are you , , di vorced, , never , or living with a partner? 05/18/2022 AUDIT-C Answer Date Recorded Q1: How often do you have a drink containing alc ohol? Never 05/18/2022 Average Number of Drinks Not on file 022 Frequency of Binge Drinking Not on file 04/21 Overall Financial Resource Strain (CARDIA) Answe r Date Recorded How hard is it for you to pa y for the very basics like food, housing, medical care, and heating? Somewhat hard 05/18/2022 PHQ-2 Answer Date Recorded PHQ-2 Score 0 04/20/2021 [facility] - Occupational Stress Questionnaire Answer Date Recorded Do you feel stress - tense, restless, nervous, or anxious, or unable to sleep at night because your mind is troubled all the time - these days? To some extent 05/18/2022 Exercise Vital Sign Answer Date Recorde d On average, how many days pe r week do you engage in moderate to strenuous exercise (like a brisk walk)? 5 days 05/18/2022 On average, how many minutes do you engage in exercise at this level? 30 min 05/18/2022 Hunger Vital Sign Answer Date Recorded Within the past 12 months, y ou worried that your food would run out before you got the money to buy more. Never true Within the past 12 months, t he food you bought just didn't last and you didn't have money to get more. Sometimes true PRAPARE - Transportation Answer Date Re corded In the past 12 months, has l ack of transportation kept you from medical appointments or from getting medications? No 04/21 In the past 12 months, has l ack of transportation kept you from meetings, work, or from getting things needed for daily living? No 05/18/2022 Housing Stability Vital Sign Answer Ramiro e Recorded In the last 12 months, was t here a time when you were not able to pay the mortgage or rent on time? No 05/18/2022 In the last 12 months, how many places have you lived? 1 05/18/2022 In the last 12 months, was t here a time when you did not have a steady place to sleep or slept in a group home (including now)? No 05/18/2022 Nutrition Answer Date Recorded Nutrition: EVOO Fat Source No 05/18 On average, how many serving s of fruits and vegetables do you eat per day (serving size is equal to 1 cup or approximately the size of a tennis ball)? 0-1 05/18/2022 Dental Answer Date Recorded Dental: Regular Dentist Yes 05/18/20 Employment Answer Date Recorded Employment status Retired 05/18/2022 Education Answer Date Recorded What is the highest level of school you have completed or the highest degree you have received? Bachelor's degree (e.g., BA, AB, BS) 04/08/2021 Sex and Gender Information Value Date Recorded Sex Assigned at Female 09/01/2021 7:01 AM CABIN OUTFITTER Gender Identity Female 04/08/2021 12:19 PM CDT Sexual Orientation Straight 04/08/2021 12 :19 PM CDT Last Filed Vital Signs Vital Sign Reading Time Taken Comments Blood Pressure 155/90 08/03/2021 1:48 PM CABIN OUTFITTER Pulse 77 08/03/2021 1:48 PM CABIN OUTFITTER Temperature 36.8 ??C (98.2 ??F) 05/31/2023 1 0:20 AM CDT Respiratory Rate 16 05/05/2021 8:52 AM CDT Oxygen Saturation 96% 08/03/2021 1:4 8 PM CABIN OUTFITTER as low as 94 Inhaled Oxygen Concentration - - Weight 80.2 kg (176 lb 12.9 oz) 05/31/2023 10:20 AM CDT Height 161 cm (5' 3.39) 05/31/2023 10: 20 AM CDT Body Mass Index 30.94 05/31/2023 10:20 AM CDT Plan of Treatment Not on file Procedures Procedure Name Priority Date/Time Associated Diagnosis Comments EXTI BASIC METABOLIC PANEL, S/P Routine 11/21/2022 8:53 AM CDT ALBUMIN, RANDOM, U Routine 04/29/2021 9: 13 AM CDT Diabetes Mellitus Type 2 Without Complication (HCC) Nodule Thyroid Nontoxic HEMOGLOBIN A1C, B Routine 04/29/2021 9:1 3 AM CDT Diabetes Mellitus Type 2 Without Complication (HCC) Nodule Thyroid Nontoxic from Last 3 Months or Most Recently Relevant to Health Maintenance Results * Albumin, Random, Urine (04/29/2021 9:13 AM CDT) Microalbumin <12.0 mg/L 04/29/2021 11:31 AM CDT [facility] Comment:If clinically indica ulices, contact the lab for additional testing. Creatinine 66 mg/dL 04/29/2021 11:31 AM CDT [facility] Albumin/Creatinine Ratio <18 <25 mg/g 04/29/2021 11:31 AM CDT [facility] Comment: This ratio may not correspond with the reference range because one or both of the values used to calculate the ratio was above or below the quantification limits. Urine (Urine, Clean Catch) 04/29/2021 9:13 AM CDT 04/29/2021 10:25 AM CDT Trenton Saavedra P.A.-C., P.A. LAB URIN E ORDERABLES Performing Organization Address City/[facility]/ZIP Co de Phone Number [facility] [address] [place] [address], [place] [facility] [place] [address] [place] [address] * (ABNORMAL) Hemoglobin A1c (04/29/2021 9:13 AM CDT) Hemoglobin A1c, B 7.5(H) 4.2 - 5.6 % 04/29/2021 11:27 AM CDT [facility] Comment: Hemoglobin A1c values greater than or equal to 6.5 percent are diagnostic for diabetes mellitus. ??Diagnosis should be confirmed by repeat testing. ??In diabetic patients, HbA1c goals should be discussed with healthcare provider. Blood (Blood, Venous) 04/29/2021 9:13 AM CDT 04/29/2021 10:25 AM CDT Trenton Saavedra P.A.-C., P.A. LAB BLOO D ADD-ON Performing Organization Address City/[facility]/ZIP Co de Phone Number [facility] [address] [place] [address], [place] [facility] [facility] [place] [address] [place] [address] from Last 3 Months or Most Recently Relevant to Health Maintenance Care Teams Margarine Maker Relationship Specialty Start Date End Date Trenton Saavedra P.A.-C., P.A. [address] [place] [phone] PCP - General 05/18/23
--- OUTSIDE RECORDS SUMMARY | 2024-02-03 20:21 | XMS_ITS ---
Author Organization [facility] Address [address] [place] [address] Care Team Providers Care Fountain Pen Turner Name Role Phone Unavailable Unavailable Unavailable Surgery Details Not on file Complications Check Surgery Details section. Procedure Estimated Blood Loss Check Surgery Details section. Procedure Findings Check Surgery Details section. Procedure Specimens Taken Check Surgery Details section.
--- OUTSIDE RECORDS SUMMARY | 2024-02-03 20:21 | XMS_ITS | Clinical Summary ---
Author Organization [facility] Address [address] [place] [address] Care Team Providers Care Roll Trucker Name Role Phone Trenton Saavedra P.A.-C., P.A. Primary Care Pr ovider Source Comments Patient records contain information from all sites at [facility]. For routine questions regarding patient records, call [phone] during business hours, M-F 8:00 AM - 5:00 PM Central Time. Record requests for emergency care only can be directed to [phone] at any time.[facility] Allergies Active Allergy Reactions Criticality Noted Date [...] (FLUZ ONE/FLUARIX) (6 months and older)(PF) 06/11/2018,06/07/2017,05/12/2016 Family History Medical History Relation Name Comments Diabetes Mother Mother Asthma Sister 1 Sister Dementia Sister 2 Elder Sister Relation Name Status Comments Mother Mother Sister 1 Sister Sister 2 Elder Sister Social History Tobacco Use Types Packs/Day Years [...] 05/18/2022 How often do you attend chur ch or rastafari services? More than 4 times per year 05/18/2022 Do you belong to any clubs o r organizations such as religious groups, unions, fraternal or athletic groups, or [...] Answer Date Recorded PHQ-2 Score 0 04/20/2021 [facility] - Occupational Stress Questionnaire Answer Date Recorded [...] place to sleep or slept in a custodial (including now)? No 05/18/2022 Nutrition Answer Date [...] Sex Assigned at Female 09/01/2021 7:01 AM PLYWOOD PATCHER Gender Identity Female 04/08/2021 12:19 PM CDT Sexual Orientation Straight 04/08/2021 12 :19 PM CDT Last Filed Vital Signs Vital Sign Reading Time Taken Comments Blood Pressure 155/90 08/03/2021 1:48 PM PLYWOOD PATCHER Pulse 77 08/03/2021 1:48 PM PLYWOOD PATCHER Temperature 36.8 ??C (98.2 ??F) 05/31/2023 1 0:20 AM CDT Respiratory Rate 16 05/05/2021 8:52 AM CDT Oxygen Saturation 96% 08/03/2021 1:4 8 PM PLYWOOD PATCHER as low as 94 Inhaled Oxygen Concentration - - Weight 80.2 kg (176 lb 12.9 oz) 05/31/2023 10:20 AM CDT Height 161 cm (5' 3.39) 05/31/2023 10: 20 AM CDT Body Mass Index 30.94 05/31/2023 10:20 AM CDT Plan of Treatment Health Maintenance Due Date Last Done Comments Dilated Eye Exam 1940 Office Visit for Blood Press ure Check / Re-check 1940 Visit: Medicare Annual Wellness 1940 Zoster Vaccines (1 of 2) 1961 DTaP,Tdap,and Td Vaccines (1 - Tdap) 07/19/2012 07/18/2012, 02/17/2005 Hemoglobin A1C 07/29/2021 04/29/2021 Diabetic Office Visit with F oot Exam 04/20/2022 04/20/2021 Urine Albumin 04/29/2022 04/29/2021 Visit: Chronic Disease, age 18+ 05/05/2022 , 05/05/2021 COVID-19 Vaccine (7 - 2022-2 4 season) 2023 06/13/2023, 05/12/2022, 11/24/2021, Additional history exists Depression Screening (Annual PHQ-2) 08/20/2023 Fall Risk Screen (Annual) 08/20/2023 Creatinine Level (Kidney Fun ction Test) 11/22/2023 11/21/2022, 11/03/2021, 04/29/2021, Additional history exists Pneumococcal vaccine (65+ years) Completed 11/28/2022, 07/18/2012, 07/23/2006 Influenza Vaccine Completed 05/18/2023, , 05/31/2021, Additional history exists Procedures Procedure Name Priority Date/Time Associated Diagnosis [...] Saavedra P.A.-C., P.A. LAB URIN E ORDERABLES [facility] [address] [place] [address], [facility] [place] [address] [place] [address] * (ABNORMAL) Hemoglobin A1c (04/29/2021 9:13 AM [...] Saavedra P.A.-C., P.A. LAB BLOO D ADD-ON [facility] [address] [place] [address], [facility] [place] [address] [place] [address] from Last 3 Months or Most Recently Relevant to Health Maintenance Care Teams Roll Trucker Relationship Specialty Start Date End Date Trenton Saavedra P.A.-C., P.A. [address] [place] [phone] PCP - General 05/18/23
== END 2024-01-31 07:52 | disposition home or self-care (01) ==
LOC: NFLDREF 02-03 20:18
PROVIDERS: PCP Internal Medicine; Referring Provider Internal Medicine; Visit Provider Internal Medicine
DX: E11.9 Type 2 diabetes mellitus without complications (principal)
CPT/HCPCS: 80053; 80061; 82043; 82570

== ENCOUNTER 2024-03-21 13:30 | Outpatient (RCR) | payer MEDICARE, SELFPAY ==
[2023-10-05 13:50] VITALS: BP 128/67; PULSE 66; RESP 18; TEMP 36.7; O2SAT 96
[2023-10-05] MEDS: OMALIZUMAB 75 MG SUBCUT (14:14)
[2023-10-05] MEDS: OMALIZUMAB 150 MG PT OWN 300 MG SUBCUT (14:15)
[2023-10-19 13:35] VITALS: BP 130/79; PULSE 74; RESP 16; TEMP 36.5; O2SAT 96
[2023-10-19] MEDS: OMALIZUMAB 150 MG PT OWN 300 MG SUBCUT (13:57)
[2023-10-19] MEDS: OMALIZUMAB 75 MG SUBCUT (13:57)
[2023-11-02] MEDS: OMALIZUMAB 75 MG SUBCUT (13:36)
[2023-11-02] MEDS: OMALIZUMAB 150 MG PT OWN 300 MG SUBCUT (13:36)
[2023-11-16] MEDS: OMALIZUMAB 75 MG SUBCUT (13:40)
[2023-11-16] MEDS: OMALIZUMAB 150 MG PT OWN 300 MG SUBCUT (13:40)
[2023-11-16 13:49] VITALS: BP 135/63; PULSE 76; RESP 16; TEMP 36.4; O2SAT 97
[2023-11-30 13:34] VITALS: BP 137/75; PULSE 81; RESP 16; TEMP 36.3; O2SAT 96
[2023-11-30] MEDS: OMALIZUMAB 75 MG SUBCUT (14:06)
[2023-11-30] MEDS: OMALIZUMAB 150 MG PT OWN 300 MG SUBCUT (14:07)
[2023-12-14 13:31] VITALS: BP 142/80; PULSE 75; RESP 16; TEMP 36.2; O2SAT 98
[2023-12-14] MEDS: OMALIZUMAB 75 MG SUBCUT (13:54)
[2023-12-14] MEDS: OMALIZUMAB 150 MG PT OWN 300 MG SUBCUT (13:55)
--- NOTE | 2023-12-26 09:17 | URNOTE ---
Xolair([id number])has been approved 375mg every 2 weeks. 12/28/2023-. REf #[id number]
[2023-12-28 13:33] VITALS: BP 118/70; PULSE 67; RESP 20; TEMP 36.3; O2SAT 97
[2023-12-28] MEDS: OMALIZUMAB 75 MG SUBCUT (13:51)
[2023-12-28] MEDS: OMALIZUMAB 150 MG PT OWN 300 MG SUBCUT (13:52)
[2024-01-11 13:36] VITALS: BP 135/72; PULSE 68; RESP 20; TEMP 36.2; O2SAT 94
[2024-01-11] MEDS: OMALIZUMAB 75 MG SUBCUT (14:02)
[2024-01-11] MEDS: OMALIZUMAB 150 MG PT OWN 300 MG SUBCUT (14:03)
[2024-01-25 13:46] VITALS: BP 149/73; PULSE 70; RESP 16; TEMP 36.3; O2SAT 95
[2024-01-25] MEDS: OMALIZUMAB 75 MG SUBCUT (14:08)
[2024-01-25] MEDS: OMALIZUMAB 150 MG PT OWN 300 MG SUBCUT (14:08)
[2024-02-08 13:30] VITALS: BP 138/79; PULSE 65; RESP 16; TEMP 36.6; O2SAT 96
[2024-02-08] MEDS: OMALIZUMAB 150 MG PT OWN 300 MG SUBCUT (13:37)
[2024-02-08] MEDS: OMALIZUMAB 75 MG SUBCUT (13:38)
[2024-02-22 13:31] VITALS: BP 157/75; PULSE 79; RESP 18; TEMP 36.3; O2SAT 94
[2024-02-22] MEDS: OMALIZUMAB 150 MG PT OWN 300 MG SUBCUT (13:53)
[2024-02-22] MEDS: OMALIZUMAB 75 MG SUBCUT (13:53)
[2024-03-07 13:39] VITALS: BP 148/73; PULSE 71; RESP 16; O2SAT 97
[2024-03-07] MEDS: OMALIZUMAB 75 MG SUBCUT (13:55)
[2024-03-07] MEDS: OMALIZUMAB 150 MG PT OWN 300 MG SUBCUT (13:55)
[2024-03-21 13:37] VITALS: BP 145/85; PULSE 75; RESP 20; TEMP 36.7; O2SAT 94
[2024-03-21] MEDS: OMALIZUMAB 150 MG PT OWN 300 MG SUBCUT (13:55)
[2024-03-21] MEDS: OMALIZUMAB 75 MG SUBCUT (13:55)
--- NOTE | 2024-03-21 15:35 | ONC.NURNOTE ---
Pt notes she's feeling like her chronic cough is getting deeper. She manages this with a prednisone taper prn. She will begin it today.
== END 2024-04-02 23:59 | disposition home or self-care (01) ==
LOC: CCIC 13:30
PROVIDERS: PCP Internal Medicine; Visit Provider Clinical Nurse Specialist
DX: J45.909 Unspecified asthma, uncomplicated (principal)
CPT/HCPCS: 96372; 96401

== ENCOUNTER 2024-09-26 13:30 | Outpatient (RCR) | payer MEDICARE, SELFPAY ==
[2024-04-04 13:35] VITALS: BP 118/70; PULSE 64; RESP 16; TEMP 36.4; O2SAT 97
[2024-04-04] MEDS: OMALIZUMAB 150 MG PT OWN 300 MG SUBCUT (13:55)
[2024-04-04] MEDS: OMALIZUMAB 75 MG SUBCUT (13:56)
[2024-04-18 13:41] VITALS: BP 152/79; PULSE 73; RESP 16; TEMP 35.8; O2SAT 96
[2024-04-18] MEDS: OMALIZUMAB 75 MG SUBCUT (14:05)
[2024-04-18] MEDS: OMALIZUMAB 150 MG PT OWN 300 MG SUBCUT (14:05)
[2024-05-02 13:37] VITALS: BP 131/74; PULSE 68; RESP 16; TEMP 36.9; O2SAT 93
[2024-05-02] MEDS: OMALIZUMAB 75 MG SUBCUT (13:45)
[2024-05-02] MEDS: OMALIZUMAB 150 MG PT OWN 300 MG SUBCUT (13:45)
[2024-05-16 13:35] VITALS: BP 128/78; PULSE 70; RESP 14; TEMP 36.4; O2SAT 94
[2024-05-16] MEDS: OMALIZUMAB 75 MG SUBCUT (14:04)
[2024-05-16] MEDS: OMALIZUMAB 150 MG PT OWN 300 MG SUBCUT (14:05)
[2024-05-30 13:41] VITALS: BP 151/71; PULSE 68; RESP 20; TEMP 37.2; O2SAT 96
[2024-05-30] MEDS: OMALIZUMAB 150 MG PT OWN 300 MG SUBCUT (13:48)
[2024-05-30] MEDS: OMALIZUMAB 75 MG SUBCUT (13:48)
--- NOTE | 2024-05-30 15:41 | ONC.NURNOTE ---
Xolair Orders Current orders 06/21/2024. Pt has switched PCP to Dr. Fermin at [facility]. LM for Dr. Fermin requesting new orders. Scanned visit note and PFT's results from [facility] - Dr. Marsh, Asthma & Allergy - March 2024 visit into EMR.
--- NOTE | 2024-06-03 14:55 | ONC.NURNOTE ---
Xolair Orders Pt has followed PCP Luna Durham at [facility] who ordered her Xolair. She recently change PCP to Dr. Adrianna Fermin at [facility]. Her new PCP is not comfortable ordering Xolair. Requested treatment recommendation from Dr. Mayco Marsh, pt's Head Sampler at [facility]. Current orders 06/21/24. Dr. Marsh out of office until 06/16/24, then will address. Shrinker [phone]
[2024-06-13 13:57] VITALS: BP 148/78; PULSE 74; RESP 16; TEMP 37; O2SAT 97
[2024-06-13] MEDS: OMALIZUMAB 75 MG SUBCUT (14:05)
[2024-06-13] MEDS: OMALIZUMAB 150 MG PT OWN 300 MG SUBCUT (14:06)
[2024-06-27 13:41] VITALS: BP 131/80; PULSE 71; RESP 16; TEMP 36.2; O2SAT 95
[2024-06-27] MEDS: OMALIZUMAB 150 MG PT OWN 300 MG SUBCUT (14:11)
[2024-06-27] MEDS: OMALIZUMAB 75 MG SUBCUT (14:12)
[2024-07-18] MEDS: OMALIZUMAB 150 MG PT OWN 300 MG SUBCUT (13:53)
[2024-07-18] MEDS: OMALIZUMAB 75 MG SUBCUT (13:53)
[2024-07-18 14:05] VITALS: BP 150/74; PULSE 77; RESP 16; O2SAT 99
[2024-08-01 13:30] VITALS: BP 170/64; PULSE 72; RESP 16; TEMP 36.6; O2SAT 96
[2024-08-01] MEDS: OMALIZUMAB 75 MG SUBCUT (13:56)
[2024-08-01] MEDS: OMALIZUMAB 150 MG PT OWN 300 MG SUBCUT (13:57)
--- NOTE | 2024-08-01 16:07 | ONC.NURNOTE ---
patient with Epipen on hand monitored for 30 min post injections no concerns or changes appts for 2 weeks set up
[2024-08-15 13:48] VITALS: BP 167/82; PULSE 74; RESP 16; TEMP 36.5; O2SAT 96
[2024-08-15] MEDS: OMALIZUMAB 75 MG SUBCUT (14:07)
[2024-08-15] MEDS: OMALIZUMAB 150 MG PT OWN 300 MG SUBCUT (14:08)
[2024-08-29 13:20] VITALS: BP 148/75; PULSE 73; RESP 16; TEMP 36.8; O2SAT 96
[2024-08-29] MEDS: OMALIZUMAB 150 MG PT OWN 300 MG SUBCUT (14:13)
[2024-08-29] MEDS: OMALIZUMAB 75 MG SUBCUT (14:13)
[2024-09-12 13:29] VITALS: BP 127/77; PULSE 93; RESP 16; TEMP 36.9; O2SAT 97
[2024-09-12] MEDS: OMALIZUMAB 150 MG PT OWN 300 MG SUBCUT (13:54)
[2024-09-12] MEDS: OMALIZUMAB 75 MG SUBCUT (13:54)
[2024-09-26 13:19] VITALS: BP 173/83; PULSE 80; RESP 14; TEMP 36.8; O2SAT 96
[2024-09-26] MEDS: OMALIZUMAB 75 MG SUBCUT (14:08)
[2024-09-26] MEDS: OMALIZUMAB 150 MG PT OWN 300 MG SUBCUT (14:08)
== END 2024-10-01 23:59 | disposition home or self-care (01) ==
LOC: CCIC 13:30
PROVIDERS: PCP Internal Medicine; Referring Provider Internal Medicine; Visit Provider Clinical Nurse Specialist
DX: J45.909 Unspecified asthma, uncomplicated (principal)
CPT/HCPCS: 96372; 96401

== ENCOUNTER 2024-10-12 08:44 | Emergency (ER) | payer MEDICARE, SELFPAY ==
--- OUTSIDE RECORDS SUMMARY | 2024-10-12 08:46 | XMS_ITS | Clinical Summary ---
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 Primary Care Provider Source Comments Patient records contain information from all sites at [facility]. For routine questions regarding patient records, call [phone] during business hours, M-F 8:00 AM - 5:00 PM Central Time. Record requests for emergency care only can be directed to [phone] at any time.[facility] Allergies Active Allergy Reactions Criticality Noted Date Comments Fluticasone Other (see comments) Low 03/02/2023 Horse Dander Other (see comments) 05/18/2022 Positive allergy test House Dust Mite Other (see comments) 05/18/2022 Positive allergy test Mold Other (see comments) 05/18/2022 Positive allergy test Penicillins Anaphylaxis High 07/01/2020 Sulfa (Sulfonamide Antibiotics) Hives (Reselect Reaction),Rash Medium 07/01/2020 Terbinafine Other (see comments) Low 03/02/2023 Medications * This document contains information received from the source organization and may not represent a complete record from that organization. albuterol 90 mcg/actuation inhaler Inhale 1-2 puffs as needed. 03/10/2021 Active EPINEPHrine 0.3 mg/0.3 mL injection syringe See Admin Instruction s. 12/31/2020 Active omalizumab (XOLAIR) 125 mg/mL injection Inject 375 mg under the skin every 14 (fourteen) days. 07/02/2020 Active metFORMIN (Glucophage) 1,000 mg tablet Take 1,000 mg by mouth 2 (two) times a day with meals. 03/25/2024 Active predniSONE (Deltasone) 10 mg tablet Take 1 tablet (10 mg total) by mouth daily. 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 Diabetes Mellitus Type 2 Without Complication Resolved Problems Problem Noted Date Diagnosed Date Resolved Date Asthma Moderate Persistent W ith Acute Exacerbation 07/01/2020 04/20/2021 Immunizations Immunization Administration Dates Next Due Influenza TIV (IM) 05/14/2012 Influenza high dose QV(65 ye ars or older) (PF) 05/10/2020 Influenza, Seasonal, Injectable 05/14/2012 Influenza, Unspecified 06/08/2015,06/10/2014, PPSV23 07/18/2012,07/23/2006 Td (Adult), adsorbed 07/18/2012,02/17/2005 influenza trivalent high dose (HD)(PF) 9 influenza trivalent vaccine (6 months and older)(PF) 05/10/2011 influenza vaccine quad (FLUZ ONE/FLUARIX) (6 months and older)(PF) 06/11/2018,06/07/2017,05/12/2016 Family History Medical History Relation Name Comments Diabetes Mother Mother Asthma Sister 1 Sister Dementia Sister 2 Elder Sister Relation Name Status Comments Mother Mother Sister 1 Sister Sister 2 Elder Sister Social History Tobacco Use Types Packs/Day Years Used Date Smoking Tobacco: Former Cigarettes Passive Smoke Exposure: Never Smokeless Tobacco: Never Tobacco Cessation:Counseling Given: Not Answered Alcohol Use Standard Drinks/Week Comments Never 0 (1 standard drink = 0.6 oz pur e alcohol) [facility] Utilities Answer Date Recorded In the past 12 months has e [email or web address] gas, oil, or water [employer] threatened to shut off services in your home? No 03/28/2024 Humiliation, Afraid, Rape, and Kick questionnair e [...] How often do you attend chur or tenriism services? More than 4 times per year 05/18/2022 Do you belong to any clubs o r organizations such as lutheran groups, unions, fraternal or athletic groups, or [...] Answer Date Recorded PHQ-2 Score 0 04/20/2021 [facility] [place] of Occupat ional Health - Occupational Stress [...] to strenuous exercise (like a brisk walk)? 7 days 03/28/2024 On average, how many minutes do you engage in exercise at this level? 40 min 03/28/2024 Hunger Vital Sign Answer Date Recorded Within the past 12 months, y ou worried that your food would run out before you got the money to buy more. Sometimes true Within the past 12 months, t he food you bought just didn't last and you didn't have money to get more. Sometimes true 04/2024 PRAPARE - Transportation Answer Date Re corded In the past 12 months, has l ack of transportation kept you from medical appointments or from getting medications? No 04/2024 In the past 12 months, has l ack of transportation kept you from meetings, work, or from getting things needed for daily living? No 03/28/2024 Nutrition Answer Date Recorded On average, how many serving s of fruits and vegetables do you eat per day (serving size is equal to 1 cup or approximately the size of a tennis ball)? 3-5 03/28/2024 Dental Answer Date Recorded Dental: Regular Dentist Yes 05/18/20 Employment Answer Date Recorded Employment status Retired 03/28/2024 Housing Stability Answer Date Recorded What is your living situation today? I have a [facility] place to live 03/28/2024 Education Answer Date Recorded What is the highest level of school you have completed or the highest degree you have received? Bachelor's degree (e.g., BA, AB, BS) 04/08/2021 Comments No Sex and Gender Information Value Date Recorded Sex Assigned at Female 09/01/2021 7:01 AM [employer] Legal Sex Female 7:40 AM CDT Gender Identity Female 04/08/2021 12:19 PM CDT Sexual Orientation Straight 04/08/2021 12 :19 PM CDT Last Filed Vital Signs Vital Sign Reading Time Taken Comments Blood Pressure 155/90 08/03/2021 1:48 PM [employer] T[employer]ER Pulse 77 08/03/2021 1:48 PM METAL [employer] T[employer]ER Temperature 36.8 C (98.2 F) 05/31/2023 10:20 AM CDT Respiratory Rate 16 05/05/2021 8:52 AM CDT Oxygen Saturation 96% 08/03/2021 1:4 8 PM [employer] RE[employer] TUNER as low as 94 Inhaled Oxygen Concentration - - Weight 80.2 kg (176 lb 12.9 oz) 05/31/2023 10:20 AM CDT Height 161 cm (5' 3.39) 05/31/2023 10: 20 AM CDT Body Mass Index 30.94 05/31/2023 10:20 AM CDT Plan of Treatment Health Maintenance Due Date Last Done Comments Dilated Eye Exam 1940 Office Visit for Blood Pressure Check / Re-check 1942 Visit: Chronic Disease, age 18+ 1942 Visit: Medicare Annual Wellness 1940 Zoster Vaccines (1 of 2) 1961 Hepatitis B Vaccines (1 of 3 - Risk 3-dose series) 2002 DTaP,Tdap,and Td Vaccines (1 - Tdap) 07/19/2012 07/18/2012, 02/17/2005 Diabetic Office Visit with Foot Exam 04/20/2022 04/20/2021 Urine Albumin 04/29/2022 04/29/2021 Hemoglobin A1C 02/20/2023 11/21/2022, 01/19, 11/03/2021, Additional history exists Creatinine Level (Kidney Function Test) 11/22/2023 11/21/2022, 11/03/2021, 04/29/2021, Additional history exists COVID-19 Vaccine ( season) 2024 02/04/2024, 06/13/2023, 05/12/2022, Additional history exists Influenza Vaccine (#1) 2024 , 05/25/2022, 05/31/2021, Additional history exists Depression Screening (Annual PHQ-2) 08/20/2024 Fall Risk Screen (Annual) 08/20/2024 Pneumococcal vaccine (50+ years) Completed 11/28/2022, 07/18/2012, 07/23/2006 RSV vaccine - (32-36 weeks) or 60+ years Completed 08/23/2023 IPV Vaccines Aged Out No longer eligi ble based on patient's age to complete this topic Procedures Procedure Name Priority Date/Time Associated Diagnosis Comments ALBUMIN, RANDOM, U Routine 04/29/2021 9: 13 AM CDT Diabetes Mellitus Type 2 Without Complication (HCC) Nodule Thyroid Nontoxic HEMOGLOBIN A1C, B Routine 04/29/2021 9:1 3 AM CDT Diabetes Mellitus Type 2 Without Complication (HCC) Nodule Thyroid Nontoxic COMPREHENSIVE METABOLIC PANEL, S/P Routine 04/29/2021 9:13 AM CDT Diabetes Mellitus Type 2 Without [...] 9:13 AM CDT 04/29/2021 10:25 AM CDT us Trenton Saavedra P.A.-C. LAB URINE ORDERABLES F inal Result [facility] [address] [place] [address], [place] [facility] [facility] [place] [address] [place] [address] * (ABNORMAL) Hemoglobin A1c (04/29/2021 9:13 AM CDT) Hemoglobin A1c, B 7.5(H) 4.2 - 5.6 % 04/29/2021 11:27 AM CDT OWAT Comment: Hemoglobin A1c values greater than or equal to 6.5 percent are diagnostic for diabetes mellitus. Diagnosis should be confirmed by repeat testing. In diabetic patients, HbA1c goals should be discussed with healthcare provider. Blood (Blood, Venous) 04/29/2021 9:13 AM CDT 04/29/2021 10:25 AM CDT Trenton Saavedra P.A.-C. LAB BLOOD ADD-ON Final Result [facility] [address] [place] [address], [place] [facility] [facility] [place] [address] [place] [address] * (ABNORMAL) Comprehensive Metabolic Panel (04/29/2021 9:13 AM CDT) Potassium, P 4.3 3.6 - 5.2 mmol/L 04/29/2021 11:23 AM CDT OWAT Sodium, P 139 135 - 145 mmol/L 04/29/2021 11:23 AM CDT OWAT Chloride, P 102 98 - 107 mmol/L 04/29/2021 11:23 AM CDT OWAT Bicarbonate, P 28 22 - 29 mmol/L 04/29/2021 11:23 AM CDT OWAT Anion Gap, P 9 7 - 15 04/29/2021 11:23 AM CDT OWAT BUN (Blood Urea Nitrogen), P 20 6 - 21 mg/dL 04/29/2021 11:23 AM CDT OWAT Creatinine 0.96 0.59 - 1.04 mg/dL 04/29/2021 11:23 AM CDT OWAT eGFR-Black/ 66 >=60 mL/min/BS A 04/29/2021 11:23 AM CDT OWAT Comment: ----ADDITIONAL INFORMATION---- Estimated GFR calculated using the 2009 CKD_EPI creatinine equation. eGFR Non-Black/ 57(L) >=60 mL/min/BS A 04/29/2021 11:23 AM CDT OWAT Comment: ----ADDITIONAL INFORMATION---- Estimated GFR calculated using the 2009 CKD_EPI creatinine equation. Calcium, Total, P 9.5 8.8 - 10.2 mg/dL 04/29/2021 11:23 AM CDT OWAT Glucose, P 138 70 - 140 mg/dL 04/29/2021 11:23 AM CDT OWAT Protein, Total, P 6.8 6.3 - 7.9 g/dL 04/29/2021 11:23 AM CDT OWAT Albumin, P 4.1 3.5 - 5.0 g/dL 04/29/2021 11:23 AM CDT OWAT Aspartate Aminotransferase (AST), P 17 8 - 43 U/L 04/29/2021 11:23 AM CDT OWAT Alkaline Phosphatase, P 77 35 - 104 U/L 04/29/2021 11:23 AM CDT OWAT Alanine Aminotransferase (ALT), P 14 7 - 45 U/L 04/29/2021 11:23 AM CDT OWAT Bilirubin, Total, P 0.6 <=1.2 mg/dL 04/29/2021 11:23 AM CDT OWAT Blood (Blood, Venous) 04/29/2021 9:13 AM CDT 04/29/2021 10:25 AM CDT us Trenton Saavedra P.A.-C. LAB BLOOD ADD-ON Final Result [facility] [address] [place] [address], [facility] [place] [address] [place] [address] from Last 3 Months or Most Recently Relevant to Health Maintenance Insurance [facility] Care Teams Roller Mill Operator Relationship Specialty Start Date End Date Trenton Saavedra P.A.-C. [address] [facility] [place] [address] PCP - General 05/18/23
[2024-10-12 08:47] VITALS: BP 176/93; PULSE 75; RESP 18; TEMP 36.7; O2SAT 97; BMI 31.5
--- NOTE | 2024-10-12 09:15 | CRLHL7_ITS ---
For Patients: As a result of the Century Cures Act, medical imaging exams and procedure reports are released immediately into your electronic medical record. You may view this report before your referring provider. If you have questions, please contact your health care provider. Indication: Knee pain. Cross a pop Technique: A total of three-view of the right knee were acquired. Comparison: None Findings: Bones: Alignment is normal. No fractures or bone lesions. Joint spaces: Significant osteoarthritis. This is mild in the lateral compartment, moderate to severe in the medial compartment and moderate in the patellofemoral compartment. No dislocation. Joint effusion is noted Soft tissues: Atherosclerotic vascular calcification Impression: 1. Demineralization. No acute fracture, dislocation or destructive process. 2. Significant osteoarthritis most affecting the medial compartment. 3. Small joint effusion. 4. Atherosclerotic vascular calcifications Dictated by Sea Berumen MD @ 10/12/2024 9:47:30 AM (Electronically Signed)
--- NOTE | 2024-10-12 09:20 | ED.LOWEXIN ---
HPI - Extremity Injury (Lower) General Date Seen: 10/12/24 Chief Complaint: Extremity Pain/Injury, Lower Stated Complaint: right knee pain Time Seen by Provider: 10/12/24 09:01 Source: patient Mode of arrival: ambulatory Limitations: no limitations History of Present Illness HPI Narrative: Patient is an 83-year-old female presenting to the emergency department for right knee pain. She states roughly 30 years ago she initially injured her knee but was unable to have it evaluated because she not have insurance. Does believe she had a meniscus tear. After few years she knee pain improved up until few weeks ago when the knee started to bother her again. She was still doing fine but then yesterday she states she got up quickly and twisted and again felt the pain in her knee. She has been able to ambulate but states it is greatly impaired compared to her baseline. There is minimal pain at rest but she feels pain within the knee mostly on the medial aspect when she is walking. She states when she initially heard 30 years ago and again yesterday she heard a pop both times. No other injuries noted. Denies any numbness. Also has some pain in the lateral popliteal region. No other injuries noted. Related Data Previous Rx's ?Medication ?Instructions ?Recorded omalizumab 150 mg/mL subcutaneous 300 mg (2 mL) subcut Q2W asthma #8 07/18/22 syringe (Xolair) mL omalizumab 75 mg/0.5 mL 75 mg (0.5 mL) subcut Q2W asthma 07/18/22 subcutaneous syringe (Xolair) #2 syringes inhalat.spacing dev,large mask #1 ea 03/02/23 (BreatheRite Spacer and Mask, Adult) albuterol sulfate 90 mcg/actuation 2 puff inhalation Q4-6H PRN 05/25/23 aerosol inhaler (Ventolin HFA) shortness of breath or wheezing #8.5 grams metformin 1,000 mg tablet 1,000 mg PO BIDWMEAL #180 tabs 07/28/24 Allergies Allergy/AdvReac Type Severity Reaction Status Date / Time Penicillins Allergy Severe Verified 10/12/24 08:57 Sulfa (Sulfonamide Allergy Mild Verified 10/12/24 08:57 Antibiotics) terbinafine Allergy Mild Depression Verified 10/12/24 08:57 fluticasone (From Flonase) AdvReac Mild Nose Bleed Verified 10/12/24 08:57 Review of Systems Narrative: Pertinent systems reviewed and were negative unless stated in HPI PFSH PFSH Surgical History History of hysterectomy with unilateral oophorectomy ?Z90.710 - Acquired absence of both cervix and uterus (ICD-10) ?Z90.721 - Acquired absence of ovaries, unilateral (ICD-10) History of nephrolithiasis ?Z87.442 - Personal history of urinary calculi (ICD-10) History of cholecystectomy ?Z90.49 - Acquired absence of other specified parts of digestive tract (ICD-10) History of cataract surgery ?Z98.49 - Cataract extraction status, unspecified eye (ICD-10) Social History What is your current living situation?: I presently have a place to live Problems where you live: no known problems In the past 12 months, utilities in danger of being shut off: no In past 12 months, lack of transportation kept you from medical appts, meetings, work, or getting things needed for daily living: no In the past 12 mos, have been you worried that your food would run out before you had money to buy more?: never true In the past 12 mos, the food you bought just didn't last and you didn't have money to buy more?: never true Smoking Status: Former smoker Do you use any of these nicotine containing products: None Second hand tobacco smoke exposure: No How often do you have a drink containing alcohol: never AUDIT-C Alcohol total score: 0 Non-prescribed substance use: denies use How often does anyone, including family, friends and others, physically hurt you: never How often does anyone, including family, friends and others, insult or talk down to you: fairly often How often does anyone, including family, friends and others, threaten you with harm: never How often does anyone, including family, friends and others, scream or curse at you: never service: No Health Related Social Needs: Other personal risk factors, not elsewhere classified (Z91.89) Exam Narrative: Exam Narrative: Const: Well-nourished, Well-developed, in no distress Eyes: PERRL, no conjunctival injection, and symmetrical lids HENT: Atraumatic external nose and ears. Moist mucous membranes. Neck: Symmetric, trachea midline, No thyromegaly. CVS: RRR, No murmurs or gallops. Peripheral pulses 2+ and equal in all extremities RESP: Unlabored respiratory effort. Clear to auscultation bilaterally. GI: Nontender/Nondistended, No rebound or guarding. MSK:Extremities w/o deformity, Normal Active ROM, no tenderness to palpation Skin: Warm, Dry. No rashes or lesions. Neuro: Normal Muscle tone, No focal neurological deficits. Psych: Awake, Alert, & Oriented x3. Appropriate mood and affect. Const: Vital Signs, click to edit/add: Vital Signs - 24 hr 10/12/24 08:47 Temperature 98.1 F Pulse Rate [Right Pulse Oximeter] 75 Respiratory Rate 18 Blood Pressure [Ri ght Upper Arm] 176/93 H Pulse Oximetry 97 Oxygen Delivery Me thod Room Air Course Vital Signs Vital signs: Initial Vital Signs Temperature 98.1 F 10/12/24 08:47 Temperature Source Temporal Artery Scan 10/12/24 08:47 Pulse Rate 75 10/12/24 08:47 Pulse Rhythm Regular 10/12/24 08:47 Respiratory Rate 18 10/12/24 08:47 Blood Pressure 176/93 H 10/12/24 08:47 Blood Pressure Mean 120 H 10/12/24 08:47 Blood Pressure Position Sitting 10/12/24 08:47 Pulse Oximetry 97 10/12/24 08:47 Oxygen Delivery Method Room Air 10/12/24 08:47 Vital Signs Temperature 98.1 F 10/12/24 08:47 Pulse Rate 75 10/12/24 08:47 Respiratory Rate 18 10/12/24 08:47 Blood Pressure 176/93 H 10/12/24 08:47 Pulse Oximetry 97 10/12/24 08:47 Oxygen Delivery Method Room Air 10/12/24 08:47 Temperature 98.1 F 10/12/24 08:47 Pulse Rate 75 10/12/24 08:47 Respiratory Rate 18 10/12/24 08:47 Blood Pressure 176/93 H 10/12/24 08:47 Pulse Oximetry 97 10/12/24 08:47 Oxygen Delivery Method Room Air 10/12/24 08:47 MDM - Extremity Injury (Lower) MDM Narrative Medical decision making narrative: Patient is an 83-year-old female presenting for right knee pain. Will do an x-ray to make sure there were no other acute bony abnormalities. She is otherwise ambulating well with no signs of knee locking. X-ray returned showing significant osteoarthritis consistent with where her pain is. I do not believe a knee immobilizer is necessary at this time as she is ambulating has full range of motion of the knee. Will have her follow up outpatient with Orthopedics. She is agreeable to this plan. Imaging Data Right knee x-ray: Attestation: I have reviewed the pertinent imaging results. Radiologist's impression: 1. Demineralization. No acute fracture, dislocation or destructive process. 2. Significant osteoarthritis most affecting the medial compartment. 3. Small joint effusion. 4. Atherosclerotic vascular calcifications Dictated by Sea Berumen MD @ 10/12/2024 9:47:30 AM Discharge Plan Discharge Clinical Impression: Osteoarthritis Qualifiers: Osteoarthritis location: knee Osteoarthritis type: unspecified Laterality: right Qualified Code(s): M17.11 - Unilateral primary osteoarthritis, right knee Patient Disposition: Home, Self-Care Condition: Stable Instructions: Osteoarthritis (ED) Additional Instructions: You have osteoarthritis of your knee. Follow-up with [facility]. Call them at Prescriptions: No Action metformin 1,000 mg tablet 1,000 mg PO BIDWMEAL Qty: 180 3RF (DME) BreatheRite Spacer-Mask,Adult Spacer See Rx Instructions .Route Qty: 1 1RF Rx Instructions: As directed Xolair 150 mg/mL syringe 300 mg subcut Q2W Qty: 8 11RF Rx Instructions: Administer 2 - 150mg syringes and 1 - 75 mg syringe. Total dose of 375mg q 14 days. Xolair 75 mg/0.5 mL syringe 75 mg subcut Q2W Qty: 2 11RF Rx Instructions: 1 - 75mg syringe q 2 weeks subQ. Given with 2 - 150mg syringes for total dose of 375mg of omalizumab q 2 weeks (14 days) albuterol sulfate [Ventolin HFA] 90 mcg/actuation HFA aerosol inhaler 2 puff inhalation Q4-6H PRN (Reason: shortness of breath or wheezing) Qty: 8.5 1RF Follow Up/Referrals: Adrianna Fermin MD [Primary Care Provider] - Stand Alone Forms: [employer] Info Instructions
--- OUTSIDE RECORDS SUMMARY | 2024-10-12 09:28 | XMS_ITS | Clinical Summary ---
Author Organization [facility] Address [address] [place] [address] Care Team Providers Care Director Validation Name Role Phone Trenton Saavedra P.A.-C. Primary Care Provider Source Comments Patient records contain information from all sites at [facility]. For routine questions regarding patient records, call [phone] during business hours, M-F 8:00 AM - 5:00 PM Central Time. Record requests for emergency care only can be directed to [phone] at any time.[facility] Allergies Active Allergy Reactions Criticality Noted [...] drink = 0.6 oz pur e alcohol) [facility] Utilities Answer Date Recorded In the past 12 months has e [employer] gas, oil, or water [employer] threatened to shut off services in your [...] How often do you attend chur or taoism services? More than 4 times per year 05/18/2022 Do you belong to any clubs o r organizations such as sikh groups, unions, fraternal or athletic groups, or [...] Answer Date Recorded PHQ-2 Score 0 04/20/2021 [facility] of Occupat ional Health - Occupational Stress [...] your living situation today? I have a [facility] place to live 03/28/2024 Education Answer Date Recorded What is the highest level of school you have completed or the highest degree you have received? Bachelor's degree (e.g., BA, AB, BS) 04/08/2021 Comments No Sex and Gender Information Value Date Recorded Sex Assigned at Female 09/01/2021 7:01 AM BARTENDERS Legal Sex Female 7:40 AM CDT Gender Identity Female 04/08/2021 12:19 PM CDT Sexual Orientation Straight 04/08/2021 12 :19 PM CDT Last Filed Vital Signs Vital Sign Reading Time Taken Comments Blood Pressure 155/90 08/03/2021 1:48 PM BARTENDERS Pulse 77 08/03/2021 1:48 PM BARTENDERS Temperature 36.8 C (98.2 F) 05/31/2023 10:20 AM CDT Respiratory Rate 16 05/05/2021 8:52 AM CDT Oxygen Saturation 96% 08/03/2021 1:4 8 PM BARTENDERS as low as 94 Inhaled Oxygen Concentration [...] P.A.-C. LAB URINE ORDERABLES F inal Result [facility] [address] [place] [address], [place] [facility] [facility] [place] [address] [place] [address] * (ABNORMAL) Hemoglobin A1c (04/29/2021 9:13 AM [...] Saavedra P.A.-C. LAB BLOOD ADD-ON Final Result [facility] [address] [place] [address], [place] [facility] [place] [address] [place] [address] * (ABNORMAL) Comprehensive Metabolic Panel (04/29/2021 9:13 [...] Saavedra P.A.-C. LAB BLOOD ADD-ON Final Result [facility] [address] [place] [address], [facility] OW[facility] [place] [address] [place] [address] from Last 3 Months or Most Recently Relevant to Health Maintenance Insurance [facility] Care Teams Director Validation Relationship Specialty Start Date End Date Trenton Saavedra P.A.-C. [address] [facility] [address] PCP - General 05/18/23
== END 2024-10-12 10:20 | disposition home or self-care (01) ==
PROVIDERS: Emergency Provider Student in an Organized Health Care Education/Training Program; PCP Internal Medicine
DX: M17.11 Unilateral primary osteoarthritis, right knee (principal)
CPT/HCPCS: 73562; 99283

== ENCOUNTER 2025-01-09 13:30 | Outpatient (RCR) | payer MEDICARE, SELFPAY ==
[2024-10-10 13:32] VITALS: BP 168/90; PULSE 70; RESP 16; TEMP 37.1; O2SAT 96
[2024-10-10 13:39] VITALS: BP 152/84
[2024-10-10] MEDS: OMALIZUMAB 75 MG SUBCUT (14:02)
[2024-10-10] MEDS: OMALIZUMAB 150 MG PT OWN 300 MG SUBCUT (14:02)
[2024-10-24 13:27] VITALS: BP 137/74; PULSE 68; RESP 16; TEMP 36.9; O2SAT 94
[2024-10-24] MEDS: OMALIZUMAB 150 MG PT OWN 300 MG SUBCUT (14:12)
[2024-10-24] MEDS: OMALIZUMAB 75 MG SUBCUT (14:13)
[2024-11-14 13:37] VITALS: BP 131/74; PULSE 55; RESP 18; TEMP 36.8; O2SAT 95
[2024-11-14] MEDS: OMALIZUMAB 150 MG PT OWN 300 MG SUBCUT (14:25)
[2024-11-14] MEDS: OMALIZUMAB 75 MG SUBCUT (14:26)
[2024-11-28 13:35] VITALS: BP 132/76; PULSE 56; RESP 18; TEMP 36.2; O2SAT 96
[2024-11-28] MEDS: OMALIZUMAB 75 MG SUBCUT (14:19)
[2024-11-28] MEDS: OMALIZUMAB 150 MG PT OWN 300 MG SUBCUT (14:19)
--- NOTE | 2024-11-28 14:40 | ONC.NURNOTE ---
Addendum entered by Shweta Mera 12/10/24 08:55: I called this morning and asked if the records were being reviewed and if they had all the info they needed. I was told they did get more info yesterday but did NOT receive the out of pocket maximum for major medical. Shweta Rubalcava-Pharmacy Addendum entered by Belem Chapin RN 12/09/24 15:09: On 12/08 underwriter contacted [facility], they sent paperwork on both 12/04/2024 and 12/08/2024. Pharmacy still unable to obtain medication. Predictive Maintenance Specialist contacted the [facility] again at [phone], option 5 Records were received and is now being reviewed. STAT option was requested today. Addendum entered by Belem Chapin RN 12/03/24 10:21: [facility] called back and they are willing to allow teaching to be done by [place]. This will be scheduled with her next two injections. [facility] will fill out the [facility] papers that are due with shipment to the hospital for next two doses, and to patient home following that. Predictive Maintenance Specialist LM for patient to call [facility] for an update on her injections. Addendum entered by Ivanna Keller RN 11/28/24 15:12: Received a call back from RENETTA Patricia at Dr. Marsh's office. Belem will review Carol's case with her Production Control Clerk next week on 12/02/2024. She is specifically going to ask about Carol getting her home injection teaching done either in [place] or at [facility]. RN clarified that all ordering/prescribing and follow-up would need to be through Dr. Marsh. She verbalized understanding. We look forward to a call back next week. Original Note: Pt present at [facility] today for Xolair injections. Pt states that she has been unsuccessful in getting transportation to [facility] in [place] for her home injection education visit. Carol feels she has exhausted all of her support resources and has even reached out to some community resources for rides. Carol is willing to drive to [facility] for this visit but was previously told she had to go to [place]. RN called Dr. Marsh's office directly and pleaded her case and requested that the option to do this visit in [place] be re-visited. The diploma medical assistant I spoke with was very knowledgeable about Carol's circumstances and will discuss with the RN's in her clinic. RN requested either a call back at [facility] with an update, or they could call Carol directly with the answer. Will follow.
--- NOTE | 2024-12-12 10:50 | ONC.NURNOTE ---
Addendum entered by Belem Chapin RN 12/15/24 13:55: [employer] reached out to the [facility] to check on the status of the patients paperwork today. They note that they are still waiting for patient to call them back with her max out of pocket for her medical plan. Patient has not yet provided this. Steak Tenderizer [employer] is unable to provide this information to them. Steak Tenderizer Machine called patient and left message to call [facility] back with phone number to contact the [facility] in order to complete order. , xolair option #5 Original Note: Called patient today to check in, per patient she has not received the self injector yet for her Xolair. States she is working with [employer] but is unsure where things are at. Spoke with our pharmacy and we do not have a dose of Xolair to give patient today. Patient would like to cancel today's teaching appt and reschedule once she has the self injector. Will review with Belem Chapin RN on Sunday about where we are at in the process and will call Carol to update. Patient appreciative of the call and agreeable to the plan. She will call if she gets and updates.
--- NOTE | 2024-12-26 14:48 | ONC.NURNOTE ---
Xolair Auto-Injector At-Home Teaching Reviewed med information and instruction handout for Xolair Auto Injectors. Demonstrated 1 injection; pt self-administered the other 2 injections effectively. She is nervous yet about at home use solo and would like 1 more teaching session for next dose in 2 wks. Appt scheduled; AutoInjectors for 01/09 dose returned to our pharmacy to keep until that teaching date.
[2025-01-09 13:33] VITALS: BP 160/79; PULSE 49; RESP 14; TEMP 36.4; O2SAT 95
--- NOTE | 2025-01-09 14:30 | ONC.NURNOTE ---
Pt present at [facility] today for a second teaching visit for her to do a return demonstration of her self administration of her Xolair injections. Pt did a fantastic job with no concerns. RN stood by and watched she did it 100% on her own. Pt will do home administration going forward.
== END 2025-04-08 23:59 | disposition home or self-care (01) ==
LOC: CCIC 13:30
PROVIDERS: PCP Internal Medicine; Referring Provider Internal Medicine; Visit Provider Clinical Nurse Specialist
DX: J45.909 Unspecified asthma, uncomplicated (principal)
CPT/HCPCS: 96372; 99211

== ENCOUNTER 2025-01-26 13:41 | Outpatient (CLI) | payer MEDICARE, SELFPAY | END 2025-01-26 13:42 | disposition home or self-care (01) | PROVIDERS: PCP Internal Medicine; Visit Provider Internal Medicine | DX: I10 Essential (primary) hypertension (principal); E11.9 Type 2 diabetes mellitus without complications; E66.9 Obesity, unspecified | CPT/HCPCS: 80053; 80061; 82043; 82570 ==

== ENCOUNTER 2025-02-09 10:32 | Emergency (ER) | payer MEDICARE, SELFPAY ==
[2025-02-09 10:41] VITALS: BP 160/62; PULSE 51; RESP 18; TEMP 37.2; O2SAT 93; BMI 31.9
--- NOTE | 2025-02-09 11:01 | CRLHL7_ITS ---
For Patients: As a result of the Cures Act, medical imaging exams and procedure reports are released immediately into your electronic medical record. You may view this report before your referring provider. If you have questions, please contact your health care provider. Indication: Fall, injury. Technique: Right hand, 3 views. Comparison: None. Findings: Bones:. Diffuse demineralization of the visualized bones. Transverse fractures are noted at the base of the 3rd, 4th and 5th proximal phalanx without definite extension to the articular surface. Joint spaces: Moderate severe degenerative changes.. Soft tissues: Soft tissue swelling surrounding the fracture sites.. Impression: Transverse fractures at the base of the 3rd, 4th and 5th proximal phalanges. Dictated by eBrna Verdin MD @ 02/09/2025 11:25:36 AM (Electronically Signed)
--- NOTE | 2025-02-09 11:02 | ED.FALL ---
HPI - Fall General Chief Complaint: Fall/Minor Trauma Stated Complaint: fell and hurt right hand, and right side of face Time Seen by Provider: 02/09/25 10:35 History of Present Illness HPI Narrative: This 84-year-old female comes in for evaluation of injuries from a fall that occurred just prior to arrival. She states that she tripped and fell onto her right side. She has a small abrasion on her right knee and also on the right side of her orbit from hitting her glasses. She states that she did not otherwise hit her head. She did not have loss of consciousness and does not report any headache. She has an abrasion on her right knee but was able to get up and ambulate without difficulty after this fall. Her main complaint is pain in her right hand. She has swelling involving the 4th and 5th metacarpals of her right hand. Related Data Home Medications ?Medication ?Instructions ?Recorded ?Confirmed prednisone 20 mg tablet 20 mg PO QDAY PRN 10/20/24 01/26/25 Previous Rx's ?Medication ?Instructions ?Recorded omalizumab 150 mg/mL subcutaneous 300 mg (2 mL) subcut Q2W asthma #8 07/18/22 syringe (Xolair) mL omalizumab 75 mg/0.5 mL 75 mg (0.5 mL) subcut Q2W asthma 07/18/22 subcutaneous syringe (Xolair) #2 syringes inhalat.spacing dev,large mask #1 ea 03/02/23 (BreatheRite Spacer and Mask, Adult) albuterol sulfate 90 mcg/actuation 2 puff inhalation Q4-6H PRN 05/25/23 aerosol inhaler (Ventolin HFA) shortness of breath or wheezing #8.5 grams metformin 1,000 mg tablet 1,000 mg PO BIDWMEAL #180 tabs 10/13/24 propranolol 60 mg capsule,24 60 mg PO Q24H #90 caps 11/03/24 hr,extended release Allergies Allergy/AdvReac Type Severity Reaction Status Date / Time Penicillins Allergy Severe Verified 01/26/25 08:22 Sulfa (Sulfonamide Allergy Mild Verified 01/26/25 08:22 Antibiotics) terbinafine Allergy Mild Depression Verified 01/26/25 08:22 fluticasone (From Flonase) AdvReac Mild Nose Bleed Verified 01/26/25 08:22 Review of Systems Status of ROS: Reports: 10 or more systems reviewed and unremarkable except as noted in History and below Narrative: Constitutional: No fevers, no weight gain or loss. Eyes: No discharge. No vision changes. HENT: No congestion, no sore throat, no ear pain. Cardiovascular: No chest pain, no palpitations. Respiratory: No shortness of breath, no wheezes, no cough. Gastrointestinal: No abdominal pain, no vomiting, no diarrhea. Genitourinary: No dysuria, no hematuria. Musculoskeletal: Right hand injury as described above. Skin: No rashes, no pruritis. Neurological: No dizziness, weakness, sensory change, speech change. Endo/Heme/Allergies: No bruising or bleeding. No polydipsia. Pysch: no suicidality, no anxiety, no insomnia. All other systems reviewed and are negative. [facility] Surgical History History of hysterectomy with unilateral oophorectomy ?Z90.710 - Acquired absence of both cervix and uterus (ICD-10) ?Z90.721 - Acquired absence of ovaries, unilateral (ICD-10) History of nephrolithiasis ?Z87.442 - Personal history of urinary calculi (ICD-10) History of cholecystectomy ?Z90.49 - Acquired absence of other specified parts of digestive tract (ICD-10) History of cataract surgery ?Z98.49 - Cataract extraction status, unspecified eye (ICD-10) Social History What is your current living situation?: I presently have a place to live Problems where you live: no known problems In the past 12 months, utilities in danger of being shut off: no In past 12 months, lack of transportation kept you from medical appts, meetings, work, or getting things needed for daily living: no In the past 12 mos, have been you worried that your food would run out before you had money to buy more?: never true In the past 12 mos, the food you bought just didn't last and you didn't have money to buy more?: never true Smoking Status: Former smoker Do you use any of these nicotine containing products: None Second hand tobacco smoke exposure: No How often do you have a drink containing alcohol: never AUDIT-C Alcohol total score: 0 Non-prescribed substance use: denies use How often does anyone, including family, friends and others, physically hurt you: never How often does anyone, including family, friends and others, insult or talk down to you: fairly often How often does anyone, including family, friends and others, threaten you with harm: never How often does anyone, including family, friends and others, scream or curse at you: never service: No Health Related Social Needs: Other personal risk factors, not elsewhere classified (Z91.89) Exam Narrative: Exam Narrative: Constitutional: Well-developed, well-nourished, no acute distress. HEENT: Small superficial abrasion on the lateral aspect of her right eye. Neck: Normal range of motion. Nontender. Supple. Heart: Regular. No murmurs. Normal rate. Intact distal pulses. Lungs: Clear to auscultation. No chest discomfort. No wheezes, rhonchi, or rales. Abdomen: Normal bowel sounds. Nontender. No rebound tenderness. Genitalia: Deferred. Back: No midline tenderness. Normal range of motion. Extremities: Superficial abrasion on the right knee. Normal range of motion. Her right hand has swelling and bruising involving the 4th and 5th metacarpals. Skin: Intact. No rash. Warm. No erythema or pallor. Neurologic: No altered sensation. No weakness. Alert and oriented. Psychiatric: No suicidality. No anxiety or depression. No insomnia. Nursing notes and vitals signs are reviewed. Const: Vital Signs, click to edit/add: Vital Signs - 24 hr 02/09/25 10:41 Temperature 98.9 F Pulse Rate [Pulse Oximeter] 51 L Respiratory Rate 18 Blood Pressure [Le ft Upper Arm] 160/62 H Pulse Oximetry 93 Oxygen Delivery Me thod Room Air Course Vital Signs Vital signs: Initial Vital Signs Temperature 98.9 F 02/09/25 10:41 Temperature Source Temporal Artery Scan 02/09/25 10:41 Pulse Rate 51 L 02/09/25 10:41 Respiratory Rate 18 02/09/25 10:41 Blood Pressure 160/62 H 02/09/25 10:41 Blood Pressure Mean 94 02/09/25 10:41 Blood Pressure Position Sitting 02/09/25 10:41 Pulse Oximetry 93 02/09/25 10:41 Oxygen Delivery Method Room Air 02/09/25 10:41 Vital Signs Temperature 98.9 F 02/09/25 10:41 Pulse Rate 51 L 02/09/25 10:41 Respiratory Rate 18 02/09/25 10:41 Blood Pressure 160/62 H 02/09/25 10:41 Pulse Oximetry 93 02/09/25 10:41 Oxygen Delivery Method Room Air 02/09/25 10:41 Temperature 98.9 F 02/09/25 10:41 Pulse Rate 51 L 02/09/25 10:41 Respiratory Rate 18 02/09/25 10:41 Blood Pressure 160/62 H 02/09/25 10:41 Pulse Oximetry 93 02/09/25 10:41 Oxygen Delivery Method Room Air 02/09/25 10:41 MDM - Fall MDM Narrative Medical decision making narrative: This patient fell with injury to her right hand. She has a few other abrasions that do not need any further attention. X-ray images of her right hand show minimally displaced fractures of the proximal aspects of her 3rd, 4th, and 5th proximal phalanges. These bones are aligned nicely and did not need any reduction. I did place an Ortho Glass splint to immobilize these fingers. I advised her to follow-up with orthopedic clinic for ongoing management. Imaging Data XR R Hand: Radiologist's impression: Transverse fractures at the base of the 3rd, 4th and 5th proximal phalanges. Discharge Plan Discharge Clinical Impression: Finger fracture, right Patient Disposition: Home, Self-Care Condition: Stable Additional Instructions: Wear splint and use [id number] medicines as needed and directed. Follow-up with orthopedic clinic for ongoing management. Call [phone] for appointment. Prescriptions: No Action prednisone 20 mg tablet 20 mg PO QDAY PRN propranolol 60 mg capsule,extended release 24 hr 60 mg PO Q24H Qty: 90 0RF (DME) BreatheRite Spacer-Mask,Adult Spacer See Rx Instructions .Route Qty: 1 1RF Rx Instructions: As directed Xolair 150 mg/mL syringe 300 mg subcut Q2W Qty: 8 11RF Rx Instructions: Administer 2 - 150mg syringes and 1 - 75 mg syringe. Total dose of 375mg q 14 days. Xolair 75 mg/0.5 mL syringe 75 mg subcut Q2W Qty: 2 11RF Rx Instructions: 1 - 75mg syringe q 2 weeks subQ. Given with 2 - 150mg syringes for total dose of 375mg of omalizumab q 2 weeks (14 days) albuterol sulfate [Ventolin HFA] 90 mcg/actuation HFA aerosol inhaler 2 puff inhalation Q4-6H PRN (Reason: shortness of breath or wheezing) Qty: 8.5 1RF metformin 1,000 mg tablet 1,000 mg PO BIDWMEAL Qty: 180 2RF Follow Up/Referrals: Adrianna Fermin MD [Primary Care Provider, Internal Medicine] Stand Alone Forms: [facility] [employer] Info Instructions
[2025-02-09 12:03] VITALS: BP 146/68; PULSE 53; RESP 16
== END 2025-02-09 12:04 | disposition home or self-care (01) ==
PROVIDERS: Emergency Provider Emergency Medicine Emergency Medical Services; PCP Internal Medicine
DX: S62.612A Displaced fracture of proximal phalanx of right middle finger, initial encounter for closed fracture (principal); S62.615A Displaced fracture of proximal phalanx of left ring finger, initial encounter for closed fracture; S62.617A Displaced fracture of proximal phalanx of left little finger, initial encounter for closed fracture; W01.0XXA Fall on same level from slipping, tripping and stumbling without subsequent striking against object, initial encounter; S80.211A Abrasion, right knee, initial encounter; S00.212A Abrasion of left eyelid and periocular area, initial encounter
CPT/HCPCS: 29130; 73130; 99283; 99284

== ENCOUNTER 2025-02-28 18:10 | Emergency (ER) | payer MEDICARE, SELFPAY ==
[2025-02-28 18:20] VITALS: BP 188/93; PULSE 96; RESP 20; TEMP 36.8; O2SAT 95; BMI 31.7
--- NOTE | 2025-02-28 18:27 | CRLHL7_ITS ---
For Patients: As a result of the Century Cures Act, medical imaging exams and procedure reports are released immediately into your electronic medical record. You may view this report before your referring provider. If you have questions, please contact your health care provider. INDICATION: Fall, right temporal hematoma. TECHNIQUE: CT of the head without contrast. Coronal and sagittal reformats. Bone and soft tissue algorithms. COMPARISON: No prior studies available for comparison at this institution. FINDINGS: No acute intracranial hemorrhage or extra-axial collection. No evidence of acute cortical infarction. No mass effect or midline shift. Moderate generalized parenchymal volume loss. Moderate regions of decreased attenuation within the periventricular and subcortical white matter of both cerebral hemispheres most likely reflect chronic microvascular ischemic disease and age related change in this patient. Vascular calcifications within the carotid siphons. Orbital contents are normal. No calvarial fractures. No lytic or sclerotic osseous lesions within the calvarium or skull base. Small left forehead/temporal region scalp hematoma. Mastoid air cells are clear. Leftward deviation of the nasal septum with septal spur. Cerumen in left external artery canal. Mild polypoid mucosal thickening in the right posterior ethmoid air cells. IMPRESSION: 1. No acute intracranial abnormality. 2. Small left forehead/temporal region scalp hematoma. 3. Moderate parenchymal volume loss chronic small vessel ischemic changes. Please note that all CT scans at this facility use dose modulation, iterative reconstruction, and/or weight-based dosing when appropriate to reduce radiation dose to as low as reasonably achievable. Dictated by Robert Howard MD @ 02/28/2025 7:24:10 PM (Electronically Signed)
--- NOTE | 2025-02-28 19:11 | ED.GENADULT ---
HPI - General Adult General Date Seen: 02/28/25 Chief complaint: Fall/Minor Trauma Stated complaint: fell- head and hand injury Time Seen by Provider: 02/28/25 18:27 History of Present Illness HPI narrative: This is a very pleasant 84-year-old female with a past medical history of type 2 diabetes, eosinophilic asthma, hypertension, tremor, elevated BMI. She had a recent visit to the ER about 3 weeks ago on 02/09 and had a fracture in her right hand finger. She still in a cast for that but is healing. She has otherwise been feeling well lately. Today she was trying to use a switch her to mop the dirty floor in one of her rooms. She says she noon new she was using this with for wrong. Instead of starting in against the wall and moving backwards, she started with this with her and walk forward. As she was moving forward to clean the floor, she was stepping on the wet slippery floor she had just mopped. She slipped on the wet slippery floor and landed. She was careful to avoid landing on her right hand and so she took most of the fall on her elbows and also jammed her left index finger against the floor. She suffered a laceration on the ulnar border of the dorsal proximal interphalangeal joint of her left index finger. She hit her head because she has a small left temporal contusion. She did not have any loss of consciousness. She does not have any headache. She is not nauseous. Vision is. She does not take any anticoagulants. She did not hurt her neck. No other injury from the fall. Hips are not hurt. No back pain. Related Data Home Medications ?Medication ?Instructions ?Recorded ?Confirmed prednisone 20 mg tablet 20 mg PO QDAY PRN 10/20/24 02/28/25 prednisone 10 mg tablet mg PO 02/28/25 Previous Rx's ?Medication ?Instructions ?Recorded inhalat.spacing dev,large mask #1 ea 03/02/23 (BreatheRite Spacer and Mask, Adult) albuterol sulfate 90 mcg/actuation 2 puff inhalation Q4-6H PRN 05/25/23 aerosol inhaler (Ventolin HFA) shortness of breath or wheezing #8.5 grams metformin 1,000 mg tablet 1,000 mg PO BIDWMEAL #180 tabs 02/24/25 propranolol 60 mg capsule,24 60 mg PO Q24H #90 caps 02/27/25 hr,extended release Allergies Allergy/AdvReac Type Severity Reaction Status Date / Time Penicillins Allergy Severe Verified 02/28/25 18:17 Sulfa (Sulfonamide Allergy Mild Verified 02/28/25 18:17 Antibiotics) terbinafine Allergy Mild Depression Verified 02/28/25 18:17 fluticasone (From Flonase) AdvReac Mild Nose Bleed Verified 02/28/25 18:17 PFSH PFSH Surgical History (Reviewed 02/12/25 @ 10:43 by Jeannie Blank ~ [facility], [facility]) History of hysterectomy with unilateral oophorectomy ?Z90.710 - Acquired absence of both cervix and uterus (ICD-10) ?Z90.721 - Acquired absence of ovaries, unilateral (ICD-10) History of nephrolithiasis ?Z87.442 - Personal history of urinary calculi (ICD-10) History of cholecystectomy ?Z90.49 - Acquired absence of other specified parts of digestive tract (ICD-10) History of cataract surgery ?Z98.49 - Cataract extraction status, unspecified eye (ICD-10) Social History (Updated 02/12/25 @ 10:42 by Jeannie Blank ~ [facility], [facility]) Narrative: former smoker (1984) What is your current living situation?: I presently have a place to live Problems where you live: no known problems In the past 12 months, utilities in danger of being shut off: no In past 12 months, lack of transportation kept you from medical appts, meetings, work, or getting things needed for daily living: no In the past 12 mos, have been you worried that your food would run out before you had money to buy more?: never true In the past 12 mos, the food you bought just didn't last and you didn't have money to buy more?: never true Smoking Status: Former smoker Do you use any of these nicotine containing products: None Second hand tobacco smoke exposure: No How often do you have a drink containing alcohol: never AUDIT-C Alcohol total score: 0 Non-prescribed substance use: denies use How often does anyone, including family, friends and others, physically hurt you: never How often does anyone, including family, friends and others, insult or talk down to you: fairly often How often does anyone, including family, friends and others, threaten you with harm: never How often does anyone, including family, friends and others, scream or curse at you: never service: No Health Related Social Needs: Other personal risk factors, not elsewhere classified (Z91.89) Exam Narrative: Exam Narrative: Constitutional: Appears well-developed and well-nourished. Alert. Conversant. Non toxic. HENT: Head: Left temporal ecchymosis and swelling. No depressed skull fracture, Raccoon Eyes, Lindo's sign, or hemotympanum. Face normal. TMs normal. Nose: Nose normal. Mouth/Throat: Oral mucosa is clear and moist. no trismus. Pharynx normal. Tonsils symmetric. No tonsillar enlargement, erythema, or exudate. Eyes: Conjunctivae normal. EOM normal. Pupils equal, round, and reactive to light. No scleral icterus. Neck: Normal range of motion. Neck supple. No tracheal deviation present. Cardiovascular: Normal rate, regular rhythm. No gallop. No friction rub. No murmur heard. Symmetric radial artery pulses Pulmonary/Chest: Effort normal. No stridor. No respiratory distress. No wheezes. No rales. No rhonchi . No tenderness. Abdominal: Soft. No distension. No mass. No tenderness. No rebound. No guarding. Musculoskeletal: RUE: Normal range of motion. No tenderness. No deformity . she has a ulnar gutter cast on her right hand. LUE: Normal range of motion in her shoulder, elbow, wrist, thumb and fingers. She does have a 1.5 cm L-shaped laceration on on the dorsum of her index finger on the radial side of the PIP joint. She has intact flexion and extension at the PIP joint. No bony deformity. No signs of current dislocation. After digital block and evaluation in a bloodless field I can see that this laceration extends through the skin and subcutaneous tissue and I can visualize a small bit of her extensor tendon. The tendon is evaluated through full range of motion in the finger and I do not see any signs of a tendon laceration or defect. I do not see any signs that there is an open PIP joint injury. MCP and the IP joints are normal. No tenderness. No deformity RLE: Normal range of motion. No edema. No tenderness. No deformity LLE: Normal range of motion. No edema. No tenderness. No deformity Neurological: Alert and oriented to person, place, and time. Normal strength. CN II-VII intact. No sensory deficit. GCS eye subscore is 4. GCS verbal subscore is 5. GCS motor subscore is 6. Normal coordination Skin: Skin is warm and dry. No rash noted. No pallor. Normal capillary refill. Psychiatric: Normal mood. Normal affect. Const: Vital Signs, click to edit/add: Vital Signs - 24 hr 02/28/25 18:20 Temperature 98.3 F Pulse Rate [Pulse Oximeter] 96 Respiratory Rate 20 Blood Pressure [Ri ght Upper Arm] 188/93 H Pulse Oximetry 95 Oxygen Delivery Me thod Room Air Course Vital Signs Vital signs: Initial Vital Signs Temperature 98.3 F 02/28/25 18:20 Temperature Source Temporal Artery Scan 02/28/25 18:20 Pulse Rate 96 02/28/25 18:20 Respiratory Rate 20 02/28/25 18:20 Blood Pressure 188/93 H 02/28/25 18:20 Blood Pressure Mean 124 H 02/28/25 18:20 Pulse Oximetry 95 02/28/25 18:20 Oxygen Delivery Method Room Air 02/28/25 18:20 Vital Signs Temperature 98.3 F 02/28/25 18:20 Pulse Rate 96 02/28/25 18:20 Respiratory Rate 20 02/28/25 18:20 Blood Pressure 188/93 H 02/28/25 18:20 Pulse Oximetry 95 02/28/25 18:20 Oxygen Delivery Method Room Air 02/28/25 18:20 Temperature 98.3 F 02/28/25 18:20 Pulse Rate 96 02/28/25 18:20 Respiratory Rate 20 02/28/25 18:20 Blood Pressure 188/93 H 02/28/25 18:20 Pulse Oximetry 95 02/28/25 18:20 Oxygen Delivery Method Room Air 02/28/25 18:20 Medical Decision Making MDM Narrative Medical decision making narrative: Very pleasant 84-year-old female presenting to the ER today after a mechanical slip and fall. She slipped on her wet floor when she was mopping it this evening. She does have left temporal contusion and hematoma. This raises concern for intracranial injury. Differential includes intracranial injuries (e.g. skull fracture, epidural hematoma, subdural hematoma, intracerebral hemorrhage, and traumatic subarachnoid hemorrhage), verses concussion or other traumatic brain injury. CT imaging was obtained and fortunately was normal. The patient/family understand that they must return if any red flags appear/develop in the coming hours/days, as this may represent an indication to perform a repeat CT scan or further evaluation. I have noted that red flags include: headaches that get worse, increased drowsiness, strange behavior, repetitive speech, seizures, repeated vomiting, growing confusion, increased irritability, slurred speech, weakness or numbness, and loss of responsiveness. This information will also be provided in writing at discharge. I have discussed the second impact syndrome, and the importance of not sustaining repeated concussion in the next 1-2 weeks. The patient's questions have been answered. She also has evidence for an uncomplicated laceration of her left index finger. which was repaired as noted above. There is no evidence at this time to suggest any associated fracture or foreign body. She does not think she really jammed against the floor. She does not recall any popping or deformity to suggest that it was a spontaneously reduced dislocation. There is no evidence to suggest tendon or arterial injury and patient is neurologically in tact. The patient is to follow up for suture removal as instructed in 9 days. Indications to seek urgent reevaluation and signs of infection (including but not limited to increasing pain, redness, swelling, fevers, and drainage) were reviewed. Tetanus is updated. This is a clean and non-contaminated wound in which prophylactic antibiotics are not indicated. An understanding of the discharge instructions and need for follow up were verbally confirmed. Imaging Data CT scan - head: Attestation: I have reviewed the pertinent imaging results. My impression: no acute bleed. small L parietal scalp hematoma Radiologist's impression: IMPRESSION: 1. No acute intracranial abnormality. 2. Small left forehead/temporal region scalp hematoma. 3. Moderate parenchymal volume loss chronic small vessel ischemic changes. Discharge Plan Discharge Clinical Impression: Finger laceration, Traumatic hematoma of scalp Patient Disposition: Home, Self-Care Condition: Stable Instructions: Head Injury (DC), Finger Laceration (ED) Additional Instructions: As we discussed, after tomorrow, take the dressing off her finger. Wash the wound gently with gauze soaked in warm water to get blood or scabs off. After the wound is clean let it air dry or data try with some clean gauze. After the wound is dry reapply antibiotic ointment and a new dressing to cover the wound and stitches. Please try to do wound care like this once per day. Follow-up with your doctor in 9 days (1 week from Sunday) for suture removal. Prescriptions: No Action prednisone 20 mg tablet 20 mg PO QDAY PRN (DME) BreatheRite Spacer-Mask,Adult Spacer See Rx Instructions .Route Qty: 1 1RF Rx Instructions: As directed prednisone 10 mg tablet PO albuterol sulfate [Ventolin HFA] 90 mcg/actuation HFA aerosol inhaler 2 puff inhalation Q4-6H PRN (Reason: shortness of breath or wheezing) Qty: 8.5 1RF metformin 1,000 mg tablet 1,000 mg PO BIDWMEAL Qty: 180 2RF propranolol 60 mg capsule,extended release 24 hr 60 mg PO Q24H Qty: 90 1RF Follow Up/Referrals: Adrianna Fermin MD [Primary Care Provider, Internal Medicine] Stand Alone Forms: [facility] Info Instructions Procedures Laceration Left hand index finger laceration: Verification/time out: correct patient and correct site Site: hand (Left hand index finger, dorsum, radial side 1.5 cm L-shaped laceration on the dorsal radial PIP joint) Side (If applicable): right Size (cm): 1.5 Description: linear Depth: simple, single layer Local Anesthetic: bupivacaine 0.25% (Digital block. Prep with Betadine. Approach from the dorsal aspect with 1 injection on the ulnar border of the proximal phalanges and 1 injection on the radial border of the proximal phalanges. Total of 3 mL) Amount of anesthesia used (mL): 3 Pre-repair: wound explored Skin layer closed with: nylon Size (cm): 5-0 Number of sutures: 6 Technique: simple, interrupted
[2025-02-28 19:30] VITALS: BP 162/81; PULSE 81; RESP 16; O2SAT 93
[2025-02-28] MEDS: TETANUS/DIPHTH/PERTUSSIS 0.5 ML SYRINGE IM (19:39)
[2025-02-28] MEDS: BUPIVACAINE 0.25% 30 ML INJECTION (19:48)
== END 2025-02-28 20:18 | disposition home or self-care (01) ==
PROVIDERS: Emergency Provider Emergency Medicine; PCP Internal Medicine
DX: S61.211A Laceration without foreign body of left index finger without damage to nail, initial encounter (principal); S00.03XA Contusion of scalp, initial encounter; E11.9 Type 2 diabetes mellitus without complications; I10 Essential (primary) hypertension; W01.198A Fall on same level from slipping, tripping and stumbling with subsequent striking against other object, initial encounter; Y93.E5 Activity, floor mopping and cleaning; Y92.000 Kitchen of unspecified non-institutional (private) residence as the place of occurrence of the external cause; Z79.84 Long term (current) use of oral hypoglycemic drugs; Z87.891 Personal history of nicotine dependence; Z23 Encounter for immunization
CPT/HCPCS: 12001; 70450; 90471; 90715; 99283; 99284; J0665

== ENCOUNTER 2025-06-17 13:15 | Outpatient (RCR) | payer MEDICARE, SELFPAY ==
--- NOTE | 2025-03-12 17:48 | OT.OPOE ---
OT Outpatient Ortho Eval OT Outpatient Ortho Eval* Start: 02/25/25 18:07 Freq: Status: Active Protocol: Document 03/12/25 08:52 AMB (Rec: 03/12/25 17:42 AMB [id number]) E-signed By Kaela Perdue, OTR/L, CLT, COFFEE HOST OT OP Ortho Eval Details Complexity Complexity Low Insurance Information Insurance Medicare B Information Outpatient History/Precautions Current Condition/Medical Diagnosis Referring Provider Robert Disla PA-C Medical Diagnoses S62.609A Fx of unspecified finger, initial encounter ( P1 of 3-5th digits of RUE) Treatment Diagnosis M25.641 Stiffness RUE hand R53.1 Weakness RUE hand Date of Onset DOI: 02/09/25 Other Conditions PMH (copied from medical chart): Active Problems (Updated 02/26/25 @ 14:06 by Robert Disla PA-C) Fracture of phalanx of digit of hand (Acute) 2 weeks post injury involving base proximal phalanx long, ring, small finger - date of injury 02/09/2025 S62.609A - Fracture of unspecified phalanx of unspecified finger, initial encounter for closed fracture (ICD-10) Essential tremor (Acute) Propranolol started 11/11 G25.0 - Essential tremor (ICD-10) Essential hypertension (Acute) on no treatment as of 02/09 I10 - Essential (primary) hypertension (ICD-10) Eosinophilic asthma (Acute) Managed by [facility] kettle firer, Dr. Mayco Marsh - multiyear history of prednisone tapers. J82.83 - Eosinophilic asthma (ICD-10) Type 2 diabetes mellitus (Acute) Dxed age 67, on metformin E11.9 - Type 2 diabetes mellitus without complications (ICD-10) Obesity with body mass index 30 or greater (Acute) E66.9 - Obesity, unspecified (ICD-10) PSH (copied from medical chart): Surgical History History of hysterectomy with unilateral oophorectomy Z90.710 - Acquired absence of both cervix and uterus ( ICD-10) Z90.721 - Acquired absence of ovaries, unilateral (ICD- 10) History of nephrolithiasis Z87.442 - Personal history of urinary calculi (ICD-10) History of cholecystectomy Z90.49 - Acquired absence of other specified parts of digestive tract (ICD-10) History of cataract surgery Z98.49 - Cataract extraction status, unspecified eye ( ICD-10) Medical/Functional History Prior Level of Pt state she had some pain in her hand prior to current Function/Mobility injury due to arthritis, pt also states that she couldn't close her hand completely due to arthritis. Social History Employment Status Retired Hobbies Cooking Fitness Enjoys walking her dog Ortho Subjective Subjective Subjective Pt states that on 02/09 she tripped on a curb and landed on her right hand which resulted in fractures of her RUE MF, RF, and SF (P1 of ea). Pt states it's been really hard because she lives alone and is right-handed . Pt states she has a fair amount of pain, but it isn' t terrible. Pt currently struggles with cooking, writing, getting dressed, cleaning, and doing laundry due to immobilization of her hand. Pt states she actually fell again on 02/28 which resulted in a laceration of her LUE IF dorsal PIPJ and a hematoma of her left temporal forehead. Pt states she was seen in ER and had a CT scan to be sure she didn't have a bleed . Sutures were removed from her left IF on 03/10 and pt denies any residual problems from this. Pt was seen in ortho today to have her cast removed from her RUE and was referred to OT for eval and treat as well as custom splinting for protected healing of her P1s. Pain Assessment Pain Pain Yes Pain Comments 03/12/25 2-3/10 RUE hand. 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 OT Problems Problems Problems Decreased Strength,Decreased Range of Motion,Decreased Dexterity,Pain,Decreased Coordination,Lifting,Gripping, Pinching Other Problems Writing,Opening Containers,Dressing,Computer,Fasteners Patient Potential Good Assessment Assessment Assessment Pt is a very pleasant 84yo referred to OT to address pain, swelling, limited AROM and weakness in the LUE following fx of P1 of MF, RF, and SF. Pt is also in need of custom orthosis for protected healing of her fractures. Pt is lives alone and is struggling with all self-cares as well as IADLs due to limitations mentioned above. Pt will benefit from skilled OT intervention to address needs for custom orthosis as well as for modalities to improve strength, ROM, swelling in pain in RUE in order to restore full, pain- free use of her dominant hand. Occupational Therapy Treatment Plan - OP Potential Rehabilitation Good Potential Barriers Barriers to goal 03/12/25 Previous limitations in ROM due to arthritis, attainment pt is also diabetic, this could lend to slower healing. Set Goals Goals Set with Yes Patient Goals Goals By 04/17/25, pt will: 1. Pt will be independent and compliant with HEP and custom orthosis in order to resume full, pain-free use of the involved UE. By 05/19/25, pt will: 2. Pt will demonstrate full, pain-free AROM of the involved UE in order to improve ability to grasp and hold. 3. 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 Treatment Plan Treatment Plan Evaluation,Edema Control,Joint Mobilization,Manual Therapy,Splinting,Therapeutic Exercise,Therapeutic Activities,Self Care/Home Management,Education Expected Frequency 1-2x Week Expected Duration 8-10 Weeks Home Program Home Program Home Program Initiated Home Program Custom orthosis for protected healing of RUE digit Specifics fractures to be on with activities, off for shower and hygiene as well as sedentary activities. Certification Certification Statement I Certify That: Therapy Services Provided,Therapy Plan Established, Therapy Plan Reviewed Certification Information Clinic ID # [id number] Initial 03/12/25 Certification Date Recertification Due 06/10/25 Date Provider Signature Yes Required Provider Signature POC & Medical Necessity Shows Agreement With Physician NPI Number Write NPI# Here Physician Comment/ Comment or Changes Change Physician Signature Please Sign/Date Here & Date Requested
--- NOTE | 2025-05-29 09:01 | PT.OPEX ---
[facility] Outpatient Eval PT [facility] Outpatient Eval Start: 05/29/25 08:49 Freq: Status: Active Protocol: Document 05/29/25 08:49 NLR (Rec: 05/29/25 09:00 NLR [id number]) E-signed By Nilay Tian DPT Physical Therapy Outpatient Evaluation Insurance Information Insurance Name Medicare B,are Medical Diagnosis Left greater trochanteric bursitis Treating Diagnosis Left hip pain, decreased range of motion, decreased pain Referring MD Dr. Rosales Subjective Subjective Patient is a 84 year old female who presents to physical therapy with history of left hip pain. Patient notes that her pain has since resolved, but had been so severe that she required a cane to walk. She was evaluated by urgent care, then orthopedics. She states that recommendations she received for Aleve intake to reduce pain and inflammation significantly helped her pain. Patient wanted to follow up with PT referral to learn exercises for future, in case this happened again . Only has pain with pressing on her greater trochanter now. Has been able to resume normal walking regimen, independent living, and all other activities with prior level of function. Pain Comments Current 0/10 Better with mobility, walking Worse with pressing on hip Date of Last 05/27/25 Physician Visit Current Work Status Retired Objective Other/Pertinent Observations: No obvious kyphotic or scoliosis Objective deformities. ROM: Hip range of motion within normal limits and no pain increase aside from minor hip flexion limitation to 110, IR limited to 10. Lumbar range of motion within normal limits through all ranges. Strength: 4/5 hip abduction and extension, 5/5 flexion and ER/IR, knee ext/flx Neuro: intact light touch sensation throughout LE dermatomes. Palpation: tenderness with palpation of lateral hip and greater trochanter Integumentary: no swelling observed today Special Tests: (+) FADDIR and JETT for minor hip pain. (+) Stinchfield, lumbar quadrant, SLR Gait/balance: Patient ambulates with normal, non- antalgic gait pattern. Good static balance during tasks including normal, narrow, tandem and single leg stance , without UE support required. Fair dynamic balance during tasks including marching in place, retro and lateral marching, walking with head turns and walking with speed changes. Functional Test LEFS 50 Performed & Score Assessment Assessment/ Patient presents to physical therapy with improving Impression left hip pain. Had been previously managed appropriately with Aleve, now no longer requiring this. Provided exercise program for improving hip mobility and strength based on objective exam deficits. Patient was able to perform all tasks with appropriate independence, no pain. Encouraged patient to pursue independent management of her hip through this exercise program as a result of pain no longer being present and not reproducible in clinic today. Should patient have increase in pain or decreased function due to left hip, she can contact clinic to schedule visits as needed. Primary Functional Decreased range of motion and strength Limitations Difficulty with sit to stands from low chair height, difficulty with prolonged walking and standing Plan of Care Rehabilitation Good Potential Physical Therapy 1. Patient will be independent and compliant with HEP Goals to allow for progression towards return to prior level of function. a. Goal date: 2025-06-12 2. Patient will be able to demonstrate normal gait pattern without significant deviations to allow for improved functional mobility. a. Goal date: 2025-06-12 3. Patient will be able to demonstrate hip range of motion within full allowable range per protocol limitations, without significant pain reproduction, to allow for improved gait, car transfers, stair performance, ADL and IADL task performance. a. Goal date:2025-07-10 4. Patient will be able to perform stairs in reciprocal pattern without limitation to allow for full return to prior level of function. a. Goal date:2025-07-24 Coordination/ Referral Source Communication With Treatment Plan/ Gait Training,Joint Mobilization,Manual Therapy, Direct Interventions Neuromuscular Re-ed,Self-Care/Home Management, Therapeutic Activities,Therapeutic Exercises Frequency/Duration 1x/wk for 6 weeks - as needed, patient to follow up based on symptoms Patient Will Be Completion of LTG(s) Discharged From Therapy Discharge Plan Should patient not schedule follow ups in 4-6 weeks, Comments will discharge episode based on patient continuing to manage hip pain well independently and/or no pain return. Evaluation Billing Untimed Code 20 Treatment Minutes Complexity Low Certification Information Initial 05/29/25 Certification Date Ending Certification 08/27/25 Date Provider Signature Yes Required Provider Signature POC & Medical Necessity Shows Agreement With Physician NPI Number Write NPI# Here Physician Comment/ : Change Physician Signature Please Sign/Date Here & Date Requested
== END 2025-06-17 14:15 | disposition home or self-care (01) ==
PROVIDERS: PCP Internal Medicine; Visit Provider Physician Assistant Surgical
DX: S62.606D Fracture of unspecified phalanx of right little finger, subsequent encounter for fracture with routine healing (principal); S62.602D Fracture of unspecified phalanx of right middle finger, subsequent encounter for fracture with routine healing; M70.62 Trochanteric bursitis, left hip; Z51.89 Encounter for other specified aftercare
CPT/HCPCS: 97110; 97140; 97161; 97165; L3808; X5282